=== PATIENT | female | born 1955 | race Caucasian/White ===

== ENCOUNTER 2018-01-14 17:49 | Inpatient (IN) ==
[2018-01-14] MEDS ORDERED: Isovue-370 500 ML INFUS..BTL IV ONE (18:31)
--- NOTE | 2018-01-14 18:34 | Emergency Department Note ---
Disposition Clinical Impression: Hypokalemia Abdominal pain Qualifiers: Abdominal location: lower abdomen, unspecified Qualified Code(s): R10.30 - Lower abdominal pain, unspecified Disposition: Still a Patient Referrals: Danna Ortiz CNP [Primary Care Provider] - Forms: ED Satisfaction Letter, Work/School Release Time of Disposition: 19:47 General Adult HPI - General Chief complaint: ED Abdominal Pain Stated complaint: abd pain,constipation Time Seen by Provider: 01/14/18 18:22 Source: patient Mode of arrival: ambulatory Limitations: no limitations - History of Present Illness HPI Narrative: This is a 62-year-old female who comes to emergency department reporting gradually worsening suprapubic pain over the last 8 weeks. She states she has lost 20 pounds during this time. She reports no vomiting, but states that she has mucousy stools with no normal stool. She denies bright red blood per rectum. Pain Scale: 10 - Related Data Allergies Allergy/AdvReac Type Severity Reaction Status Date / Time No Known Allergies Allergy Verified 01/14/18 19:32 All systems ED: reviewed and negative except as stated. Gastrointestinal: Reports: abdominal pain, constipation Physical Exam - General Limitations: no limitations General appearance: alert, in distress (In mild distress from lower abdominal pain) - Head Head exam: atraumatic, normocephalic, normal inspection - Chest Chest inspection: Present: normal inspection, symmetric chest wall rise - Respiratory Respiratory exam: Present: normal lung sounds bilaterally - Cardiovascular Cardiovascular exam: Present: regular rate, normal rhythm, normal heart sounds - Abdominal Exam Abdominal exam: Present: soft, tenderness Abdominal tenderness: Present: suprapubic, moderate. Absent: RUQ, RLQ, LUQ, LLQ , epigastrium - Extremities Exam Extremities exam: Present: normal inspection, full ROM. Absent: tenderness, pedal edema - Back Exam Back exam: Present: normal inspection, full ROM. Absent: tenderness, CVA tenderness (R), CVA tenderness (L) - Neurological Exam Neurological exam: Present: alert, oriented X3 - Psychiatric Psychiatric exam: Present: normal affect, normal mood - Skin Skin exam: Present: warm, dry, intact, normal color Course Course Narrative: This is a 62-year-old female with an exam concerning for a possible obstruction. Urinary retention seems less likely. Vital Signs Temperature 98.5 F 01/14/18 18:04 Pulse Rate 105 08/28/18 18:04 Respiratory Rate 18 01/14/18 18:04 Blood Pressure 91/55 01/14/18 18:04 O2 Sat by Pulse Oximetry 86 01/14/18 18:04 Temperature 98.5 F 01/14/18 18:04 Pulse Rate 97 01/14/18 18:14 Respiratory Rate 18 01/14/18 18:14 Blood Pressure 102/73 01/14/18 18:14 O2 Sat by Pulse Oximetry 95 01/14/18 18:14 Oxygen Delivery Oxygen Delivery Room Air Medical Decision Making - MDM Narrative Medical decision making narrative: This is a 62-year-old female who reports chronic suprapubic pain and unintentional weight loss starting 8 weeks prior to arrival along with constipation but no vomiting. Labs are summarized above, and treatment of hypokalemia was performed by the receiving team. She was signed out to Dr. Millan 1715 p.m. - Lab Data Lab results narrative: CBC was unremarkable BMP showed potassium was low at 2.7 LFT showed slight elevation of AST at 57 Result diagrams: 01/14/18 18:44 01/14/18 18:44 Lab Results 01/14/18 01/14/18 Range/Units 18:44 18:44 WBC 4.5 (4.3-11.1) K/mcL RBC 3.78 L (3.82-4.97) M/mcL Hgb 12.4 (11.5-15.4) g/dL Hct 35.5 (35.3-44.9) % MCV 93.9 (83.0-100.0) fL MCH 32.8 (28.0-33.3) pg MCHC 34.9 (31.6-35.5) g/dL RDW 18.2 H (11.5-14.5) % Plt Count 213 (140-400) K/mcL MPV 9.2 L (9.4-12.4) fL Immature Gran % 0.2 (0-4) % Seg Neutrophils % 53.1 % Lymphocytes % 35.8 % Monocytes % 8.9 % Eosinophils % 0.9 % Basophils % 1.1 % Neutrophils # 2.4 (1.6-8.9) K/mcL Lymphocytes # 1.6 (0.6-4.6) K/mcL Monocytes # 0.4 (0.0-1.3) K/mcL Eosinophils # 0.0 (0.0-0.6) K/mcL Basophils # 0.1 (0.0-0.2) K/mcL Sodium 141 (136-145) mEq/L Potassium 2.7 L (3.5-5.1) mEq/L Chloride 102 (98-107) mEq/L Carbon Dioxide 30 H (23-29) mEq/L BUN 7 L (8-23) mg/dL Creatinine 0.73 (0.60-1.20) mg/dL Est GFR ( Amer) > 60 (> 60) Est GFR (Non-Af Amer) > 60 (> 60) BUN/Creatinine Ratio 10 (6-26) Glucose 91 (70-105) mg/dL Calculated Osmolality 290 (280-300) Calcium 8.8 (8.6-10.3) mg/dL Total Bilirubin 0.3 (0.3-1.0) mg/dL Direct Bilirubin 0.1 (0.0-0.2) mg/dL Indirect Bilirubin 0.2 (0.0-1.2) mg/dL AST 57 H (13-39) Units/L ALT 30 (7-52) Units/L Alkaline Phosphatase 86 (34-104) Units/L Serum Total Protein 5.7 L (6.4-8.9) g/dL Albumin 3.5 (3.5-5.7) g/dL Globulin 2.2 L (2.4-3.5) g/dL Albumin/Globulin Ratio 1.6 (1.1-2.2)
[2018-01-14 19:12] LABS: Basophils # 0.1 K/mcL (0.0-0.2); Basophils % 1.1 %; Eosinophils % 0.9 %; Hematocrit 35.5 % (35.3-44.9); Hemoglobin 12.4 g/dL (11.5-15.4); Immature Granulocytes % 0.2 % (0-4); Lymphocytes # 1.6 K/mcL (0.6-4.6); Lymphocytes % 35.8 %; Mean Corpuscular HGB Conc 34.9 g/dL (31.6-35.5); Mean Corpuscular Hemoglobin 32.8 pg (28.0-33.3); Mean Corpuscular Volume 93.9 fL (83.0-100.0); Mean Platelet Volume 9.2 fL (9.4-12.4); Monocytes # 0.4 K/mcL (0.0-1.3); Monocytes % 8.9 %; Neutrophils # 2.4 K/mcL (1.6-8.9); Platelet Count 213 K/mcL (140-400); Red Blood Count 3.78 M/mcL (3.82-4.97); Red Cell Distribution Width 18.2 % (11.5-14.5); Segmented Neutrophils % 53.1 %
[2018-01-14 19:28] LABS: Alanine Aminotransferase 30 Units/L (7-52); Albumin 3.5 g/dL (3.5-5.7); Albumin/Globulin Ratio 1.6 (1.1-2.2); Alkaline Phosphatase 86 Units/L (34-104); Aspartate Amino Transferase 57 Units/L (13-39); BUN/Creatinine Ratio 10 (6-26); Bilirubin,Direct 0.1 mg/dL (0.0-0.2); Bilirubin,Indirect 0.2 mg/dL (0.0-1.2); Bilirubin,Total 0.3 mg/dL (0.3-1.0); Blood Urea Nitrogen 7 mg/dL (8-23); Calcium 8.8 mg/dL (8.6-10.3); Carbon Dioxide 30 mEq/L (23-29); Chloride 102 mEq/L (98-107); Globulin 2.2 g/dL (2.4-3.5); Glucose 91 mg/dL (70-105); Osmolality,Calculated 290 (280-300); Potassium 2.7 mEq/L (3.5-5.1); Sodium 141 mEq/L (136-145); Total Protein 5.7 g/dL (6.4-8.9); eGFR For Non-African Americans > 60 (> 60)
[2018-01-14] MEDS ORDERED: Potassium Chloride Elixir 20 MEQ/15 ML UDC PO ONE (19:43)
[2018-01-14 20:16] LABS: Bilirubin,Urine Negative (Negative); Blood,Urine Negative (Negative); Clarity,Urine Cloudy (Clear); Color,Urine Yellow (Yellow); Glucose,Urine (UA) Normal (Normal); Ketones,Urine Negative (Negative); Leukocyte Esterase,Urine Negative (Negative); Nitrite,Urine Negative (Negative); Protein,Urine Negative (Neg-Trace); Specific Gravity,Urine 1.013 (1.010-1.025); Urobilinogen,Urine Normal (Normal)
[2018-01-14 20:29] LABS: Bacteria,Urine Moderate per hpf (None-Few); RBC,Urine 0-3 per hpf (0-3); Squamous Epithelial Cell,Urine Few per lpf (None-Few); WBC,Urine 0-3 per hpf (0-3)
--- NOTE | 2018-01-14 22:17 | Emergency Department Note ---
Disposition Clinical Impression: Hypokalemia, Hypoxia Abdominal pain Qualifiers: Abdominal location: lower abdomen, unspecified Qualified Code(s): R10.30 - Lower abdominal pain, unspecified COPD (chronic obstructive pulmonary disease) Qualifiers: COPD type: chronic bronchitis Chronic bronchitis type: simple Qualified Code(s) : J41.0 - Simple chronic bronchitis Disposition: Admitted As Inpatient Condition: Good Referrals: Danna Ortiz LINE RUNNER [Primary Care Provider] - Forms: ED Satisfaction Letter, Work/School Release Time of Disposition: 22:37 General Adult HPI - General Chief complaint: ED Abdominal Pain Stated complaint: abd pain,constipation Time Seen by Provider: 01/14/18 18:22 Source: patient Mode of arrival: ambulatory Limitations: no limitations Nursing Notes Reviewed: Yes Vital Signs Reviewed: Yes - History of Present Illness HPI Narrative: 3 month history of lower abdominal pain. Weight loss of 21 lbs in 3 months. Early fullness feeling when she eats. Pain with eating. Decreased bowel movements. Small amount of blood on the outside of her stool that she states is from where she " is raw." No fevers or chills. No vomiting, but mildly nauseated. NO chest pain. Always SOB. Chronic cough. No change from normal. Increase in her sputum. NO color or consistency. Has been seen at [facility] and was prepped for 2 colonoscopies but was unable to have them preformed secondary to transportation and unreliable support. Mother has a history of rectal, ovarian and gastric cancer. Does have a history of acid reflux and takes Prilosec daily. Pain Scale: 4 - Related Data Allergies Allergy/AdvReac Type Severity Reaction Status Date / Time No Known Allergies Allergy Verified 01/14/18 19:32 All systems ED: reviewed and negative except as stated. Constitutional: Denies: fever, chills ENT ED: Denies: congestion Cardiovascular: Denies: chest pain, palpitations, syncope Respiratory: Reports: cough (chronic), dyspnea (chronic), sputum production ( increased) Gastrointestinal: Reports: abdominal pain, nausea, constipation. Denies: vomiting, diarrhea Genitourinary: Denies: urgency, dysuria, frequency Musculoskeletal: Denies: back pain, neck pain Integumentary: Denies: rash Neurological: Denies: headache, weakness Past Medical History - Past Medical History Attestation: Yes The following information was validated with the patient. Source: patient Physical Exam - General Limitations: no limitations General appearance: alert, in distress (In mild distress from lower abdominal pain) - Head Head exam: atraumatic, normocephalic, normal inspection - Eye Eye exam: Present: normal appearance, PERRL, EOMI - ENT ENT exam: normal exam, normal oropharynx, mucous membranes moist - Neck Neck exam: Present: normal inspection, full ROM, trachea midline - Chest Chest inspection: Present: normal inspection, symmetric chest wall rise - Respiratory Respiratory exam: Present: normal lung sounds bilaterally. Absent: respiratory distress, wheezes, accessory muscle use, prolonged expiratory phase - Cardiovascular Cardiovascular exam: Present: regular rate, normal rhythm, normal heart sounds - Abdominal Exam Abdominal exam: Present: soft, tenderness (To suprapubic palpation.). Absent: distention, guarding, rebound, rigidity, Lawrence's sign, Rovsing's sign, tenderness at McBurney's Point - Extremities Exam Extremities exam: Present: normal inspection, full ROM, normal capillary refill. Absent: tenderness, pedal edema - Neurological Exam Neurological exam: Present: alert, oriented X3 - Psychiatric Psychiatric exam: Present: normal affect, normal mood - Skin Skin exam: Present: warm, dry, intact, normal color Course Course Narrative: Patient hypoxic on ambulation. Her oxygen saturation drops to the 80s on 3 L of oxygen. Patient is not on oxygen at home. Does have a history of COPD. Is a smoker. Reports an increase in frequency of her sputum. Does have a chronic cough. No fevers. I do believe this is likely a COPD exacerbation secondary to her hypoxemia. However patient does also have a thickening of her esophagus as well as gastric area. Due to the significance of her recent weight loss doing full while she eats small amounts and family history of gastric cancer. We will admit patient to the hospital for COPD exacerbation with hypoxemia. The patient is agreeable with this. We will start patient on steroids as well as azithromycin for her sputum change. As well as her hypoxia. - Consultations Consultation #1: Dr Kaba accepted Pt in stable condition. Time: 22:57 Vital Signs Temperature 98.5 F 01/14/18 18:04 Pulse Rate 105 01/14/18 18:04 Respiratory Rate 18 01/14/18 18:04 Blood Pressure 91/55 01/14/18 18:04 O2 Sat by Pulse Oximetry 86 01/14/18 18:04 Temperature 98.5 F 01/14/18 18:04 Pulse Rate 86 01/14/18 21:06 Respiratory Rate 24 01/14/18 21:06 Blood Pressure 158/108 01/14/18 21:06 O2 Sat by Pulse Oximetry 95 01/14/18 21:07 Oxygen Delivery Oxygen Delivery Nasal Cannula Medical Decision Making - Medical Records Medical records reviewed: Yes I reviewed the patient's medical records. - Lab Data Lab results reviewed: Yes I reviewed the patient's lab results. Result diagrams: 01/14/18 18:44 01/14/18 18:44 Lab Results 01/14/18 01/14/18 01/14/18 Range/Units 18:44 18:44 20:05 WBC 4.5 (4.3-11.1) K/mcL RBC 3.78 L (3.82-4.97) M/mcL Hgb 12.4 (11.5-15.4) g/dL Hct 35.5 (35.3-44.9) % MCV 93.9 (83.0-100.0) fL MCH 32.8 (28.0-33.3) pg MCHC 34.9 (31.6-35.5) g/dL RDW 18.2 H (11.5-14.5) % Plt Count 213 (140-400) K/mcL MPV 9.2 L (9.4-12.4) fL Immature Gran % 0.2 (0-4) % Seg Neutrophils % 53.1 % Lymphocytes % 35.8 % Monocytes % 8.9 % Eosinophils % 0.9 % Basophils % 1.1 % Neutrophils # 2.4 (1.6-8.9) K/mcL Lymphocytes # 1.6 (0.6-4.6) K/mcL Monocytes # 0.4 (0.0-1.3) K/mcL Eosinophils # 0.0 (0.0-0.6) K/mcL Basophils # 0.1 (0.0-0.2) K/mcL Sodium 141 (136-145) mEq/L Potassium 2.7 L (3.5-5.1) mEq/L Chloride 102 (98-107) mEq/L Carbon Dioxide 30 H (23-29) mEq/L BUN 7 L (8-23) mg/dL Creatinine 0.73 (0.60-1.20) mg/dL Est GFR ( Amer) > 60 (> 60) Est GFR (Non-Af Amer) > 60 (> 60) BUN/Creatinine Ratio 10 (6-26) Glucose 91 (70-105) mg/dL Calculated Osmolality 290 (280-300) Calcium 8.8 (8.6-10.3) mg/dL Total Bilirubin 0.3 (0.3-1.0) mg/dL Direct Bilirubin 0.1 (0.0-0.2) mg/dL Indirect Bilirubin 0.2 (0.0-1.2) mg/dL AST 57 H (13-39) Units/L ALT 30 (7-52) Units/L Alkaline Phosphatase 86 (34-104) Units/L Serum Total Protein 5.7 L (6.4-8.9) g/dL Albumin 3.5 (3.5-5.7) g/dL Globulin 2.2 L (2.4-3.5) g/dL Albumin/Globulin Ratio 1.6 (1.1-2.2) Urine Color Yellow (Yellow) Urine Clarity Cloudy A (Clear) Urine pH 7.0 (5.0-8.0) pH Units Ur Specific [place] 1.013 (1.010-1.025) Urine Protein Negative (Neg-Trace) mg/dL Urine Glucose (UA) Normal (Normal) mg/dL Urine Ketones Negative (Negative) mg/dL Urine Blood Negative (Negative) Urine Nitrite Negative (Negative) Urine Bilirubin Negative (Negative) Urine Urobilinogen Normal (Normal) mg/dL Ur Leukocyte Esterase Negative (Negative) Urine Microscopic RBC 0-3 (0-3) per hpf Urine Microscopic WBC 0-3 (0-3) per hpf Ur Squamous Epith Cells Few (None-Few) per lpf Urine Bacteria Moderate H (None-Few) per hpf Ur Culture Indicated? NO (NO) - Radiology Data Radiology results reviewed: Yes I reviewed the patient's radiology results. Abdomen/Pelvis CT 01/14/18 18:31 IMPRESSION: Moderate thickening of the stomach wall, and duodenal wall. Thickening of the esophagus. Findings may be seen in setting of gastroesophageal reflux, gastritis, or peptic ulcer disease. Follow-up upper endoscopy is recommended given degree of gastric wall thickening to exclude malignancy. Mild nonspecific enhancement of the appendix tip. No significant inflammation is identified. This is likely secondary to timing of the contrast. However, clinical correlation is recommended for any concern of early appendicitis. Overall, findings do not favored acute appendicitis. No evidence of mechanical bowel obstruction. No additional areas of bowel wall thickening are identified. Colonic diverticulosis. No convincing CT evidence of acute diverticulitis. Severe hepatic steatosis. Distended gallbladder, without calcified gallstones. Multiple calcified periportal lymph nodes identified. These are nonspecific. Nonspecific 14 mm right adrenal nodule. D/ / 01/14/2018 21:47:20 Eddi Og MD / [email or web address] Interpreting Provider: Eddi Og MD Chest X-Ray 01/14/18 19:55 IMPRESSION: COPD. No acute cardiopulmonary findings. D/ / Gwen Og MD / Gwen Og MD Interpreting Provider: Gwen Og MD
[2018-01-14] MEDS ORDERED: methylPREDNISolone 125 MG/2 ML VIAL IVP ONE (22:35)
[2018-01-14] MEDS ORDERED: Azithromycin 500 MG in D5% in Water 250 ML IVPB ONE (22:36)
--- NOTE | 2018-01-14 23:02 | Emergency Department Note ---
Disposition Clinical Impression: Hypokalemia, Hypoxia Abdominal pain Qualifiers: Abdominal location: lower abdomen, unspecified Qualified Code(s): R10.30 - Lower abdominal pain, unspecified COPD (chronic obstructive pulmonary disease) Qualifiers: COPD type: chronic bronchitis Chronic bronchitis type: simple Qualified Code(s) : J41.0 - Simple chronic bronchitis Disposition: Admitted As Inpatient Condition: Good Referrals: Danna Ortiz, [employer] EXECUTIVE [Primary Care Provider] - Forms: ED Satisfaction Letter, Work/School Release General Adult HPI - General Chief complaint: ED Abdominal Pain Stated complaint: abd pain,constipation Time Seen by Provider: 01/14/18 18:22 Source: patient Mode of arrival: ambulatory Limitations: no limitations Nursing Notes Reviewed: Yes Vital Signs Reviewed: Yes - History of Present Illness Pain Scale: 4 - Related Data Allergies Allergy/AdvReac Type Severity Reaction Status Date / Time No Known Allergies Allergy Verified 01/14/18 19:32 Constitutional: Denies: fever, chills ENT ED: Denies: congestion Cardiovascular: Denies: chest pain, palpitations, syncope Respiratory: Reports: cough (chronic), dyspnea (chronic), sputum production ( increased) Gastrointestinal: Reports: abdominal pain, nausea, constipation. Denies: vomiting, diarrhea Genitourinary: Denies: urgency, dysuria, frequency Musculoskeletal: Denies: back pain, neck pain Integumentary: Denies: rash Neurological: Denies: headache, weakness Physical Exam - General Limitations: no limitations General appearance: alert, in distress (In mild distress from lower abdominal pain) Course Vital Signs Temperature 98.5 F 01/14/18 18:04 Pulse Rate 105 01/14/18 18:04 Respiratory Rate 18 01/14/18 18:04 Blood Pressure 91/55 01/14/18 18:04 O2 Sat by Pulse Oximetry 86 01/14/18 18:04 Temperature 98.5 F 01/14/18 18:04 Pulse Rate 86 01/14/18 21:06 Respiratory Rate 24 01/14/18 21:06 Blood Pressure 158/108 01/14/18 21:06 O2 Sat by Pulse Oximetry 95 01/14/18 21:07 Oxygen Delivery Oxygen Delivery Nasal Cannula Medical Decision Making - Medical Records Medical records reviewed: Yes I reviewed the patient's medical records. - Lab Data Lab results reviewed: Yes I reviewed the patient's lab results. Result diagrams: 01/14/18 18:44 01/14/18 18:44 Lab Results 01/14/18 01/14/18 01/14/18 Range/Units 18:44 18:44 20:05 WBC 4.5 (4.3-11.1) K/mcL RBC 3.78 L (3.82-4.97) M/mcL Hgb 12.4 (11.5-15.4) g/dL Hct 35.5 (35.3-44.9) % MCV 93.9 (83.0-100.0) fL MCH 32.8 (28.0-33.3) pg MCHC 34.9 (31.6-35.5) g/dL RDW 18.2 H (11.5-14.5) % Plt Count 213 (140-400) K/mcL MPV 9.2 L (9.4-12.4) fL Immature Gran % 0.2 (0-4) % Seg Neutrophils % 53.1 % Lymphocytes % 35.8 % Monocytes % 8.9 % Eosinophils % 0.9 % Basophils % 1.1 % Neutrophils # 2.4 (1.6-8.9) K/mcL Lymphocytes # 1.6 (0.6-4.6) K/mcL Monocytes # 0.4 (0.0-1.3) K/mcL Eosinophils # 0.0 (0.0-0.6) K/mcL Basophils # 0.1 (0.0-0.2) K/mcL Sodium 141 (136-145) mEq/L Potassium 2.7 L (3.5-5.1) mEq/L Chloride 102 (98-107) mEq/L Carbon Dioxide 30 H (23-29) mEq/L BUN 7 L (8-23) mg/dL Creatinine 0.73 (0.60-1.20) mg/dL Est GFR ( Amer) > 60 (> 60) Est GFR (Non-Af Amer) > 60 (> 60) BUN/Creatinine Ratio 10 (6-26) Glucose 91 (70-105) mg/dL Calculated Osmolality 290 (280-300) Calcium 8.8 (8.6-10.3) mg/dL Total Bilirubin 0.3 (0.3-1.0) mg/dL Direct Bilirubin 0.1 (0.0-0.2) mg/dL Indirect Bilirubin 0.2 (0.0-1.2) mg/dL AST 57 H (13-39) Units/L ALT 30 (7-52) Units/L Alkaline Phosphatase 86 (34-104) Units/L Serum Total Protein 5.7 L (6.4-8.9) g/dL Albumin 3.5 (3.5-5.7) g/dL Globulin 2.2 L (2.4-3.5) g/dL Albumin/Globulin Ratio 1.6 (1.1-2.2) Urine Color Yellow (Yellow) Urine Clarity Cloudy A (Clear) Urine pH 7.0 (5.0-8.0) pH Units Ur Specific [place] 1.013 (1.010-1.025) Urine Protein Negative (Neg-Trace) mg/dL Urine Glucose (UA) Normal (Normal) mg/dL Urine Ketones Negative (Negative) mg/dL Urine Blood Negative (Negative) Urine Nitrite Negative (Negative) Urine Bilirubin Negative (Negative) Urine Urobilinogen Normal (Normal) mg/dL Ur Leukocyte Esterase Negative (Negative) Urine Microscopic RBC 0-3 (0-3) per hpf Urine Microscopic WBC 0-3 (0-3) per hpf Ur Squamous Epith Cells Few (None-Few) per lpf Urine Bacteria Moderate H (None-Few) per hpf Ur Culture Indicated? NO (NO) - Radiology Data Radiology results reviewed: Yes I reviewed the patient's radiology results. Abdomen/Pelvis CT 01/14/18 18:31 IMPRESSION: Moderate thickening of the stomach wall, and duodenal wall. Thickening of the esophagus. Findings may be seen in setting of gastroesophageal reflux, gastritis, or peptic ulcer disease. Follow-up upper endoscopy is recommended given degree of gastric wall thickening to exclude malignancy. Mild nonspecific enhancement of the appendix tip. No significant inflammation is identified. This is likely secondary to timing of the contrast. However, clinical correlation is recommended for any concern of early appendicitis. Overall, findings do not favored acute appendicitis. No evidence of mechanical bowel obstruction. No additional areas of bowel wall thickening are identified. Colonic diverticulosis. No convincing CT evidence of acute diverticulitis. Severe hepatic steatosis. Distended gallbladder, without calcified gallstones. Multiple calcified periportal lymph nodes identified. These are nonspecific. Nonspecific 14 mm right adrenal nodule. D/ / 01/14/2018 21:47:20 Eddi Og MD / gumaro Interpreting Provider: Eddi Og MD Chest X-Ray 01/14/18 19:55 IMPRESSION: COPD. No acute cardiopulmonary findings. D/ / Gwen Og MD / Gwen Og MD Interpreting Provider: Gwen Og MD Attestation Statement - Attestation Attestation: I, Ced Millan MD, personally evaluated this patient and discussed their management with the resident physician. I reviewed the resident's note and agree with the documented findings, medical decision making, and plan of care. This patient was signed out at shift change from Dr. mcknight. Please refer to his note for complete details of history and physical examination. Patient is a 62- year-old female with history of COPD who presents to the emergency department complaining of lower abdominal pain for 2 months associated with constipation and a 20 pound weight loss. She has COPD but does not use home oxygen. She does complain of some increased shortness of breath. Some cough with clear sputum production in the morning. No fever. She denies any urinary symptoms. Small amount of bright red blood on the tissue when she wipes but otherwise no blood noted in her stool. No hematemesis. Patient was noted to be hypoxic with an O2 sat of 86% on room air on arrival. She was placed on oxygen with improvement to the low to mid 90s however when she got up to go the bathroom with the oxygen on she dropped back down to 88% on oxygen. She does not have home oxygen. On examination patient is a well-developed thin female in no acute distress. She is alert and oriented 3. There is no cyanosis or diaphoresis. Chest is nontender to palpation. Breath sounds are decreased bilaterally with a few scattered expiratory wheezes. No rales. Heart regular rate and rhythm. Abdomen soft with normal bowel sounds. Mild suprapubic tenderness with no guarding or rebound tenderness. No CVA tenderness. There is also some epigastric tenderness. Chest x-ray shows COPD but no acute abnormality. CT the abdomen and pelvis shows thickening of the gastric wall as well as the esophagus and duodenum. Concerning for malignancy. Labs reviewed. Hypokalemia noted. The hospitalist, Dr. Gardner, was consulted and accepted admission of the patient.
[2018-01-15 05:57] LABS: Hematocrit 38.8 % (35.3-44.9); Hemoglobin 13.2 g/dL (11.5-15.4); Mean Corpuscular Hemoglobin 31.1 pg (28.0-33.3); Mean Corpuscular Volume 91.3 fL (83.0-100.0); Mean Platelet Volume 9.2 fL (9.4-12.4); Platelet Count 214 K/mcL (140-400); Red Blood Count 4.25 M/mcL (3.82-4.97); Red Cell Distribution Width 17.8 % (11.5-14.5)
[2018-01-15 06:17] LABS: BUN/Creatinine Ratio 11 (6-26); Blood Urea Nitrogen 6 mg/dL (8-23); Calcium 8.8 mg/dL (8.6-10.3); Carbon Dioxide 28 mEq/L (23-29); Chloride 98 mEq/L (98-107); Glucose 136 mg/dL (70-105); Osmolality,Calculated 290 (280-300); Potassium 3.1 mEq/L (3.5-5.1); Sodium 140 mEq/L (136-145); eGFR For Non-African Americans > 60 (> 60)
[2018-01-15] MEDS ORDERED: Naloxone 0.4 MG/ML INJ IVP PRN (07:36)
[2018-01-15] MEDS ORDERED: Isovue-370 500 ML INFUS..BTL IV ONE (07:39)
[2018-01-15] MEDS ORDERED: Potassium Chloride Elixir 20 MEQ/15 ML UDC PO SCH (07:45)
[2018-01-15] MEDS ORDERED: MethylPREDNISolone 40 MG/ML VIAL IVP SCH (08:00)
[2018-01-15 08:33] LABS: ABG Base Excess 6 mEq/L (-2 to 3); ABG HCO3 30 mEq/L (21-27); ABG Oxygen Saturation 90 % (95-98); ABG PCO2 43 mmHg (35-45); ABG PH 7.45 pH Units (7.32-7.45); ABG PO2 56 mmHg (85-104); ABG TCO2 32 mEq/L (20-26)
[2018-01-15] MEDS: Levofloxacin 750 MG/150 ML 750 MG/150 ML BAG IVPB SCH (08:39)
[2018-01-15] MEDS ORDERED: *HR* LORazepam 2 MG/ML VIAL IVP PRN (09:08)
[2018-01-15] MEDS ORDERED: diazePAM 10 MG/2 ML SYRINGE IVP PRN ×5 (09:08)
[2018-01-15] MEDS ORDERED: *HR* Promethazine 25 MG/ML VIAL IVP PRN (09:08)
--- NOTE | 2018-01-15 09:10 | Internal Med History&Physical ---
Date of Encounter: 01/15/18 Time of Encounter: 09:00 Internal Medicine - H&P: HPI Chief complaint: Abdominal pain of about 2 months duration and weight loss History of present illness: Ms. Us is a 62 year old female with pmh COPD, alcohol and tobacco abuse presenting with complaints of abdominal pain of about 2 months duration and a 20 pound weight loss. Patient notes, the pain was sudden onset and started about 2 months ago and has been constant since then. Pain is a dull, constant ache located in the suprapubic area, worsened with eating and defecation. She also notes she has had progress gideon weight loss. She admits to drinking beer and vodka daily as well, last drink was about a week ago. Since last night, she noted she has been having tremors and shakes in her hands and legs. She admits to occasional fevers and chills and admits to coughing with some occasional shortness of breath. In the ERA, she was noted to be hypxoc with her oxygen sats of 86% on room air on arrival. She is not on home oxygen. She had a CTA chest, abdomen and pelvis done showing no PE, but showed esophageal, gastric and duodenal thickening. She was started onnebs, steroids and antibiotic s and admitted for further management Past Med Surg Social Fam HX - Past Medical History Medical history: COPD, GERD, hypertension Psychiatric history: anxiety - Past Surgical History Surgical History: no surgical history - Social History Smoking Status: Current every day smoker Packs per day: 1 Smokeless Tobacco Status: No Alcohol use: occasionally Drug use: marijuana - Family History Mother Adopted: [place]: Sujata Tong Living Status: Age at : 84 Cause of : Cancer Hx Family Cancer: Yes (multiple) Father Adopted: [place]: Chencho Tong Family Member Ethnicity: Non- Living Status: Age at : 64 Cause of : Cancer Hx Family Cancer: Yes (Multiple) Internal Medicine - H&P: Meds Albuterol Sulfate [Ventolin Hfa] 2 puff IH Q4-6H PRN 01/15/18 [History] Cholecalciferol (Vitamin D3) [Vitamin D3] 10,000 unit PO QWEEK 01/15/18 [History ] Escitalopram [Lexapro] 20 mg PO DAILY 01/15/18 [History] Fluticasone/Vilanterol [Breo Ellipta 100-25 Mcg INH] 2 puff PO BID 01/15/18 [ History] Ibuprofen [Ibuprofen] 800 mg PO QID PRN 01/15/18 [History] Ipratropium/Albuterol Neb [Duoneb] 3 ml IH Q6HR PRN 01/15/18 [History] Montelukast [Singulair] 10 mg PO HS 01/15/18 [History] Potassium Chloride [K-Tab ER] 10 meq PO DAILY 01/15/18 [History] Simvastatin [Zocor] 10 mg PO HS 01/15/18 [History] amLODIPine [Norvasc] 5 mg PO DAILY 01/15/18 [History] 3 Allergy/AdvReac Type Severity Reaction Status Date / Time No Known Allergies Allergy Verified 01/14/18 19:32 All Systems PM: A 10-system review of systems was performed and is negative for pertinent findings except as documented above in the HPI. - Constitutional Constitutional: fever(s), no chills, no night sweats - EENT Eyes: no change in vision, no discharge, no pain, no photophobia Ears: no ear discharge, no ear pain, no tinnitus Nose, mouth and throat: no dysphagia, no nasal discharge, no neck pain, no sore throat - Cardiovascular Cardiovascular ROS IM: dyspnea, no chest pain, no diaphoresis, no lightheadedness, no palpitations, no syncope - Respiratory Respiratory: cough, dyspnea, no wheezing, no excessive phlegm production - Gastrointestinal Gastrointestinal: abdominal pain, constipation, no diarrhea, no hematemesis, no hematochezia, no melena, no nausea, no vomiting - Genitourinary Genitourinary: no change in urinary stream, no dysuria, no flank pain, no hematuria - Musculoskeletal Musculoskeletal ROS IM: no numbness, no tingling - Integumentary Integumentary IM: no rash, no unusual bruising - Neurological Neurological ROS: no confusion, no convulsions, no focal weakness, no numbness, no tingling, no tremor(s) - Hematologic/Lymphatic Hematologic/Lymphatic: no easy bruising - Constitutional Vitals: Temp Pulse Resp BP Pulse Ox 98.2 F 91 16 149/79 98 01/15/18 06:46 01/15/18 06:46 01/15/18 06:46 01/15/18 06:46 01/15/18 06:46 General appearance: Present: A&O X 3 Exam: Appears anxious and hs tremors in hands and legs - Head Head exam: Present: atraumatic, normocephalic - Eye Eye exam: Present: PERRL, conjuntiva pink, sclera anicteric Pupils: Present: PERRL - Neck Neck exam general surgery: Present: supple, trachea midline. Absent: lymphadenopathy - Respiratory Respiratory exam: Present: decreased breath sounds. Absent: accessory muscle use, rales, rhonchi, wheezes - Cardiovascular Cardiovascular exam: Present: RRR, +S1, +S2. Absent: diastolic murmur, gallop, rubs, systolic murmur - GI/Abdominal GI/Abdominal exam: Present: normal bowel sounds, soft, tenderness, no peritoneal signs. Absent: distended Additional comments: suprapubic tenderness to palpation - Extremities Exam Extremities exam: Present: warm, radial pulses palpable and symmetrical. Absent : calf tenderness, cyanotic, pedal edema - Neurological Exam Neurological exam: Present: CN II-XII intact, oriented X3, no focal deficits. Absent: pronater drift, facial droop, speech deficit - Skin Skin exam: Present: dry, intact Internal Med - H&P Results - Labs CBC & Chem 7: 01/15/18 05:43 01/15/18 05:43 Labs: Short CBC 01/15/18 Range/Units 05:43 WBC 3.3 L (4.3-11.1) K/mcL Hgb 13.2 (11.5-15.4) g/dL Hct 38.8 (35.3-44.9) % Plt Count 214 (140-400) K/mcL [facility] 01/15/18 05:43 Sodium 140 Potassium 3.1 L Chloride 98 Carbon Dioxide 28 BUN 6 L Creatinine 0.53 L Glucose 136 H Calcium 8.8 - ABG Interpretation ABG results: 01/15/18 08:29 ABG pH 7.45 ABG pCO2 43 ABG pO2 56 L ABG HCO3 30 H ABG Total CO2 32 H ABG O2 Saturation 90 L ABG Base Excess 6 H - Impressions ITS Impressions Chest CTA 01/15/18 07:39 IMPRESSION: 1. No pulmonary embolism. No acute abnormality in the chest. 2. Mild emphysema and COPD. 3. A 2 mm right apical nodule. Consider a 1 year follow-up chest CT if the patient is high risk, as outlined below. 4. Diffuse gastric wall thickening, which can be seen with gastritis, or less likely malignancy. Follow-up with upper endoscopy is recommended, which was also recently recommended on the CT abdomen exam. RECOMMENDATIONS: Fleischner Society guidelines for follow-up and management of incidentally detected pulmonary nodules: Single Solid Nodule: Nodule size less than 6 mm In a low-risk patient, no routine follow-up. In a high-risk patient, optional CT at 12 months. - Low risk patients include individuals with minimal or absent history of smoking and other known risk factors. - High risk patients include individuals with a history or smoking or known risk factors. Radiology 2017 http://pubs.rsna.org/doi/full/10.1148/radiol.8647244487 D/ / 01/15/2018 08:57:51 Yuri Wild MD / lina Interpreting Provider: Yuri Wild MD - Assessment and plan (1) Acute respiratory failure with hypoxia Current Visit: Yes Status: Acute Assessment and plan: pt came in with coughing and shortness of breath. Oxygen sat was 86% on room air. CTA chest ruled out PE but showed evidence of emphysema and COPD Patrick start on nebs, steroids and antibiotics. Supplemental oxygen as needed to keep sats above 93%. (2) COPD with acute exacerbation Current Visit: Yes Status: Acute Assessment and plan: See #1. Continue on nebs, steroids and antibiotics (3) Alcohol withdrawal delirium, acute, hyperactive Current Visit: Yes Status: Acute Assessment and plan: Pt admits to drinking beer and vodka every day. LAst drink was a week ago. Has tremors and shakes consistent with alcohol withdrawal as well she is anxious. Start on CIWA protocol with banana bag and prn ativan (4) Gastric wall thickening Current Visit: Yes Status: Acute Assessment and plan: Pt complains of abdominal pain and has esophageal, agstric and duodenal wall thickening on CT scan. NPO for possible endoscopy. GI consulted and appreciate recs (5) Hypokalemia Current Visit: Yes Status: Acute Assessment and plan: Replaced (6) Abdominal pain Current Visit: Yes Status: Acute Assessment and plan: See plan for gastric wall thickening. Pain control PRN. CT scan shows no evidence of diverticulitis Qualifiers: Abdominal location: lower abdomen, unspecified Qualified Code(s): R10.30 - Lower abdominal pain, unspecified (7) DVT prophylaxis Current Visit: Yes Status: Acute Assessment and plan: Heparin sc - Time Spent With Patient Total time spent is greater than 50% in coordination of care (as documented) at patient's floor/unit and/or counseling patient:
[2018-01-15] MEDS ORDERED: Acetaminophen 325 MG TABLET PO PRN (09:11)
[2018-01-15] MEDS: *HR* LORazepam 2 MG/ML VIAL IVP PRN ×2 (09:56→19:27)
--- NOTE | 2018-01-15 14:15 | Anesthesia Evaluation PreOp ---
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: Other (anxiety, depression) Other Medical History: Denies Any Significant HX, Other (weight loss) Anesthesia History: No Prior Anesthetic Complications, Past Anesthesia ( colonoscopy) Alcohol Use: none, occasionally Drug use: none, marijuana Medications and Allergies Albuterol Sulfate [Ventolin Hfa] 2 puff IH Q4-6H PRN 01/15/18 [History] Cholecalciferol (Vitamin D3) [Vitamin D3] 10,000 unit PO QWEEK 01/15/18 [History ] Escitalopram [Lexapro] 20 mg PO DAILY 01/15/18 [History] Fluticasone/Vilanterol [Breo Ellipta 100-25 Mcg INH] 2 puff PO BID 01/15/18 [ History] Ibuprofen [Ibuprofen] 800 mg PO QID PRN 01/15/18 [History] Ipratropium/Albuterol Neb [Duoneb] 3 ml IH Q6HR PRN 01/15/18 [History] Montelukast [Singulair] 10 mg PO HS 01/15/18 [History] Potassium Chloride [K-Tab ER] 10 meq PO DAILY 01/15/18 [History] Simvastatin [Zocor] 10 mg PO HS 01/15/18 [History] amLODIPine [Norvasc] 5 mg PO DAILY 01/15/18 [History] 3 Allergy/AdvReac Type Severity Reaction Status Date / Time No Known Allergies Allergy Verified 01/14/18 19:32 - Meds/Allergy Pre-op Review Medications Reviewed: Yes Allergies Reviewed: Yes Beta Blockers on Current Med List: No Anesthesia Results - Labs 01/15/18 05:43 01/15/18 05:43 Anesthesia Exam Vital Signs/O2 Sat, Most Current Temp Pulse Resp BP Pulse Ox 98.7 F 83 16 132/78 98 01/15/18 11:46 01/15/18 11:46 01/15/18 11:46 01/15/18 11:46 01/15/18 11:46 Weight: 49kg NPO (# of Hours): >8 - HEENT Pupil (Motor): Pupils equal - WRITER PRODUCER LOC: Oriented WRITER PRODUCER Motor: Normal RUE, Normal LUE, Normal RLE, Normal LLE, Normal Face WRITER PRODUCER Sensory: Normal: RUE, LUE, RLE, LLE, Face - Cardiac Rhythm: Regular - Pulmonary Breath Sounds: bilateral Clear Respiratory Effort: Symmetrical Anesthesia Assess/Plan ASA Score: 3 Modified Lela Scale for Level of Consciousness: Cooperative, oriented, and tranquil Anesthetic Plan: MAC Monitoring Plan: Standard Monitors Recovery Plan: PACU
--- NOTE | 2018-01-15 14:23 | Gastroenterology Consult Note ---
<CamejoJaime Velazquez - Last Filed: 01/15/18 14:21> Date of Encounter: 01/15/18 Time of Encounter: 11:40 - Assessment and plan (1) Gastric wall thickening Current Visit: Yes Status: Acute Assessment and plan: CT A/P shows moderate thickening of the stomach wall, duodenal wall, the esophagus, and low-density lesion within the distal esophagus, severe hepatic steatosis. CTA chest shows diffuse gastric wall thickening, which can be seen with gastritis, or less likely malignancy. Plan for EGD today to r/o esophagitis , gastritis, duodenitis, PUD, MW tear, or AVM. Keep NPO for scope. Start PPI. (2) Abdominal pain Current Visit: Yes Status: Acute Qualifiers: Abdominal location: lower abdomen, unspecified Qualified Code(s): R10.30 - Lower abdominal pain, unspecified - Time Spent With Patient Total time spent is greater than 50% in coordination of care (as documented) at patient's floor/unit and/or counseling patient: GI History of Present Illness - Data of Consult Patient: new to practice Consult date: 01/15/18 Requesting Physician: Ion Gardner MD - Consult Narrative Reason for consult: Thickening of stomach, lesion in esophagus History of present illness: Ms. Us is a 62 year old female with PMHx of COPD, GERD, HTN who presented with 3 month history of lower abdominal pain and weight loss of 21 lbs in 3 months. He reports small amount of blood on her stool. She denies fever, chills , chest pain, vomiting, diarrhea. CT A/P shows moderate thickening of the stomach wall, duodenal wall, the esophagus, and low-density lesion within the distal esophagus, severe hepatic steatosis. CTA chest shows diffuse gastric wall thickening, which can be seen with gastritis, or less likely malignancy Procedures: Colonoscopy 09/20/2009 Dr. Olivares: Cecum with sessile adenoma, sigmoid hyperplastic polyp, proximal ascending with sessile adenoma. NSAIDs: Ibuprofen Anticoagulation: None Past Med Surg Social Fam HX - Past Medical History Medical history: COPD, GERD, hypertension Psychiatric history: anxiety - Past Surgical History Surgical History: no surgical history - Social History Smoking Status: Current every day smoker Packs per day: 1 Smokeless Tobacco Status: No Alcohol use: none, occasionally Drug use: none, marijuana - Family History Mother Adopted: [place]: Sujata Tong Living Status: Age at : 84 Cause of : Cancer Hx Family Cancer: Yes (multiple) Father Adopted: [place]: Chencho Tong Family Member Ethnicity: Non- Living Status: Age at : 64 Cause of : Cancer Hx Family Cancer: Yes (Multiple) - Gastrointestinal Gastrointestinal: Present: as per HPI - Constitutional Constitutional: as per HPI - EENT Eyes: as per HPI Ears: Present: as per HPI Nose, mouth and throat: Present: as per HPI - Cardiovascular Cardiovascular ROS: Present: as per HPI - Respiratory Respiratory IM: Present: as per HPI - Genitourinary Genitourinary: Absent: change in color, Urinary frequency - Neurological ROS Neurological GI: Present: as per HPI - Hematologic/Lymphatic Hematologic/Lymphatic pediatric: Present: as per HPI - Musculoskeletal Musculoskeletal ROS GI: Present: as per HPI - Integumentary Integumentary GI: Present: as per HPI - Psychiatric ROS Psychiatric GI: Present: as per HPI - Endocrine Endocrine IM: Present: as per HPI - Constitutional Vitals: Temp Pulse Resp BP Pulse Ox 98.7 F 83 16 132/78 98 01/15/18 11:46 01/15/18 11:46 01/15/18 11:46 01/15/18 11:46 01/15/18 11:46 General appearance: Present: cooperative, A&O X 3, no acute distress, answers questions appropriately - Head Head exam: Present: atraumatic, normocephalic - Eye Eye exam: Present: normal appearance, sclera anicteric - ENT ENT exam: Present: mucous membranes dry - Neck Neck exam general surgery: Present: normal inspection, trachea midline - Respiratory Respiratory exam: Present: decreased breath sounds, CTAB. Absent: rales, rhonchi - Cardiovascular Cardiovascular exam: Present: RRR, +S1, +S2 - GI/Abdominal GI/Abdominal exam: Present: soft, tenderness (upper abdomen), no peritoneal signs. Absent: distended, firm, guarding - Rectal Rectal exam: Present: deferred - Extremities Exam Extremities exam: Present: warm - Neurological Exam Neurological exam: Present: no focal deficits - Psychiatric Psychiatric exam: Present: normal affect, normal mood - Skin Skin exam: Present: dry, intact, normal color, warm Results - Labs CBC & Chem 7: 01/15/18 05:43 01/15/18 05:43 Labs: Last Result Calcium 8.8 mg/dL (8.6-10.3) 01/15/18 05:43 Entire Visit Hgb 13.2 g/dL (11.5-15.4) 01/15/18 05:43 Hct 38.8 % (35.3-44.9) 01/15/18 05:43 Total Bilirubin 0.3 mg/dL (0.3-1.0) 01/14/18 18:44 AST 57 Units/L (13-39) H 01/14/18 18:44 ALT 30 Units/L (7-52) 01/14/18 18:44 Lipase 18 Units/L (11-82) 01/15/18 09:48 - ABG ABG results: ABG ABG pH 7.45 pH Units (7.32-7.45) 01/15/18 08:29 ABG pCO2 43 mmHg (35-45) 01/15/18 08:29 ABG pO2 56 mmHg (85-104) L 01/15/18 08:29 ABG O2 Saturation 90 % (95-98) L 01/15/18 08:29 - Impressions Impressions Chest CTA 01/15/18 07:39 IMPRESSION: 1. No pulmonary embolism. No acute abnormality in the chest. 2. Mild emphysema and COPD. 3. A 2 mm right apical nodule. Consider a 1 year follow-up chest CT if the patient is high risk, as outlined below. 4. Diffuse gastric wall thickening, which can be seen with gastritis, or less likely malignancy. Follow-up with upper endoscopy is recommended, which was also recently recommended on the CT abdomen exam. RECOMMENDATIONS: Fleischner Society guidelines for follow-up and management of incidentally detected pulmonary nodules: Single Solid Nodule: Nodule size less than 6 mm In a low-risk patient, no routine follow-up. In a high-risk patient, optional CT at 12 months. - Low risk patients include individuals with minimal or absent history of smoking and other known risk factors. - High risk patients include individuals with a history or smoking or known risk factors. Radiology 2017 http://pubs.rsna.org/doi/full/10.1148/radiol.1659895961 D/ /15/2018 08:57:51 Yuri Wild MD / lina Interpreting Provider: Yuri Wild MD Consult Discharge Plan - Plan Referrals: Danna Ortiz CNP [Primary Care Provider] - <Leandra Palacios - Last Filed: 01/16/18 07:42> Date of Encounter: 01/15/18 Time of Encounter: 14:00 - Time Spent With Patient Total time spent is greater than 50% in coordination of care (as documented) at patient's floor/unit and/or counseling patient: GI History of Present Illness - Data of Consult Requesting Physician: Ion Gardner MD - Consult Narrative History of present illness: Ms. Us is a 62 year old female - Constitutional Vitals: Temp Pulse Resp BP Pulse Ox 98.7 F 105 20 132/76 97 01/16/18 07:06 01/16/18 07:06 01/16/18 07:06 01/16/18 07:06 01/16/18 07:06 Results - Labs CBC & Chem 7: 01/16/18 04:24 01/16/18 04:24 Labs: Last Result Calcium 8.5 mg/dL (8.6-10.3) L 01/16/18 04:24 Entire Visit Hgb 11.9 g/dL (11.5-15.4) 01/16/18 04:24 Hct 35.2 % (35.3-44.9) L 01/16/18 04:24 Total Bilirubin 0.3 mg/dL (0.3-1.0) 01/14/18 18:44 AST 57 Units/L (13-39) H 01/14/18 18:44 ALT 30 Units/L (7-52) 01/14/18 18:44 Lipase 18 Units/L (11-82) 01/15/18 09:48 - ABG ABG results: ABG ABG pH 7.45 pH Units (7.32-7.45) 01/15/18 08:29 ABG pCO2 43 mmHg (35-45) 01/15/18 08:29 ABG pO2 56 mmHg (85-104) L 01/15/18 08:29 ABG O2 Saturation 90 % (95-98) L 01/15/18 08:29 - Impressions Impressions Chest CTA 01/15/18 07:39 IMPRESSION: 1. No pulmonary embolism. No acute abnormality in the chest. 2. Mild emphysema and COPD. 3. A 2 mm right apical nodule. Consider a 1 year follow-up chest CT if the patient is high risk, as outlined below. 4. Diffuse gastric wall thickening, which can be seen with gastritis, or less likely malignancy. Follow-up with upper endoscopy is recommended, which was also recommended on the recent CT abdomen exam. RECOMMENDATIONS: Fleischner Society guidelines for follow-up and management of incidentally detected pulmonary nodules: Single Solid Nodule: Nodule size less than 6 mm In a low-risk patient, no routine follow-up. In a high-risk patient, optional CT at 12 months. - Low risk patients include individuals with minimal or absent history of smoking and other known risk factors. - High risk patients include individuals with a history or smoking or known risk factors. Radiology 2017 http://pubs.rsna.org/doi/full/10.1148/radiol.5731321228 D/ / 01/15/2018 08:57:51 Yuri Wild MD / lina Interpreting Provider: Yuri Wild MD - Attending Attestation I have personally performed a face to face evaluation on this patient. I have reviewed and agree with the care plan. History and Exam by me shows: Pt seen, complaing of lower abd pain. Exam: mild tanderness. A: aabd pain with gastric and esoph wall thickening on CT. Rec: EGD
[2018-01-15] MEDS ORDERED: *HR* Propofol 200 MG/20 ML VIAL IVP ONE ×2 (14:45→15:11)
[2018-01-15] MEDS ORDERED: Lidocaine -MPF 2% 2 ML VIAL ONE (14:45)
[2018-01-15] MEDS: Ipratropium/Albuterol Neb 3 ML IH SCH ×5 (15:34→23:17)
[2018-01-15] MEDS: Budesonide/Formoterol 160/4.5 1 PUFF INH IH SCH ×2 (15:35→19:52)
--- NOTE | 2018-01-15 16:32 | Anesthesia Evaluation Post Op ---
Date of Encounter: 01/15/18 Time of Encounter: 16:31 - Vital Signs Vital Signs: Vital Signs/O2 Sat, Most Current Temp Pulse Resp BP Pulse Ox 98.7 F 93 16 122/96 97 01/15/18 14:30 01/15/18 14:30 01/15/18 14:30 01/15/18 14:30 01/15/18 14:30 - Lungs Lungs: Clear Ascult./Percussion - Airway Airway: Non-obstructed - Cardiovascular Regular Rate - Mental Status Mental Status: Alert & Oriented, Answers Appropriately - Pain Pain Scale: 0 Pain Scale used: Numeric (1 - 10) - Nausea Vomiting Nausea Vomiting: Not Present - Hydration Hydration: Has not voided - Discharge PostOp Status: Transfer Patient to floor
[2018-01-15] MEDS: MethylPREDNISolone 40 MG/ML VIAL IVP SCH (17:25)
[2018-01-15] MEDS: Thiamine (B-1) 100 MG, Folic Acid 1 MG, MVI, adult with vitamin K 10 ML in 0.9 % Sodi... IVPB SCH (17:25)
[2018-01-16] MEDS: Ipratropium/Albuterol Neb 3 ML IH SCH ×6 (04:49→23:00)
[2018-01-16 05:02] LABS: Hematocrit 35.2 % (35.3-44.9); Hemoglobin 11.9 g/dL (11.5-15.4); Immature Granulocytes % 0.5 % (0-4); Lymphocytes # 0.8 K/mcL (0.6-4.6); Lymphocytes % 17.7 %; Mean Corpuscular HGB Conc 33.8 g/dL (31.6-35.5); Mean Corpuscular Hemoglobin 31.4 pg (28.0-33.3); Mean Corpuscular Volume 92.9 fL (83.0-100.0); Mean Platelet Volume 9.6 fL (9.4-12.4); Monocytes # 0.6 K/mcL (0.0-1.3); Monocytes % 13.6 %; Platelet Count 215 K/mcL (140-400); Red Blood Count 3.79 M/mcL (3.82-4.97); Red Cell Distribution Width 17.8 % (11.5-14.5); Segmented Neutrophils % 68.2 %
[2018-01-16 05:21] LABS: BUN/Creatinine Ratio 24 (6-26); Blood Urea Nitrogen 12 mg/dL (8-23); Calcium 8.5 mg/dL (8.6-10.3); Carbon Dioxide 29 mEq/L (23-29); Chloride 101 mEq/L (98-107); Glucose 121 mg/dL (70-105); Magnesium 1.3 mg/dL (1.6-2.6); Osmolality,Calculated 289 (280-300); Phosphorous 2.7 mg/dL (2.7-4.5); Potassium 3.1 mEq/L (3.5-5.1); Sodium 139 mEq/L (136-145); eGFR For Non-African Americans > 60 (> 60)
[2018-01-16] MEDS: *HR* LORazepam 2 MG/ML VIAL IVP PRN ×4 (06:02→16:33)
[2018-01-16] MEDS: MethylPREDNISolone 40 MG/ML VIAL IVP SCH (06:02)
[2018-01-16] MEDS: Levofloxacin 750 MG/150 ML 750 MG/150 ML BAG IVPB SCH (07:15)
[2018-01-16] MEDS: Budesonide/Formoterol 160/4.5 1 PUFF INH IH SCH ×2 (10:49→19:59)
--- NOTE | 2018-01-16 11:14 | Internal Med Progress Note ---
Hospitalist Progress Note - Encounter Date of Encounter: 01/16/18 Time of Encounter: 11:00 - Exam Vitals: Temp Pulse Resp BP Pulse Ox 98.0 F 92 20 134/77 91 01/16/18 10:24 01/16/18 10:24 01/16/18 10:24 01/16/18 10:24 01/16/18 10:24 Exam: Appears anxious and hs tremors in hands and legs - Assessment and Plan (1) Acute respiratory failure with hypoxia Current Visit: Yes Status: Acute Assessment and Plan: pt came in with coughing and shortness of breath. Oxygen sat was 86% on room air. CTA chest ruled out PE but showed evidence of emphysema and COPD Patrick start on nebs, steroids and antibiotics. Supplemental oxygen as needed to keep sats above 93%. (2) COPD with acute exacerbation Current Visit: Yes Status: Acute Assessment and Plan: See #1. Continue on nebs, steroids and antibiotics (3) Esophagitis Current Visit: Yes Status: Acute Assessment and Plan: EGS showed grade D esophagitis and Barrets esophagus. Started on PPI BID per GI. follow up for repeat endoscopy in 8 weeks. (4) Alcohol withdrawal delirium, acute, hyperactive Current Visit: Yes Status: Acute Assessment and Plan: Pt admits to drinking beer and vodka every day. LAst drink was a week ago. Has tremors and shakes consistent with alcohol withdrawal as well she is anxious. Continue on CIWA protocol with banana bag and prn ativan. Tremors have reduced this am (5) Gastric wall thickening Current Visit: Yes Status: Acute Assessment and Plan: Pt complains of abdominal pain and has esophageal, agstric and duodenal wall thickening on CT scan. Had endscopy done on 01/15 showing esophagitis and Goldstein's esophagus. On PPI BID. Outpatient follow up with GI for repeat endoscopy (6) Hypokalemia Current Visit: Yes Status: Acute Assessment and Plan: Replaced (7) Urinary tract infection Current Visit: Yes Status: Acute Assessment and Plan: Pt has suprapubic pain and urinalysis showed bacteria. continue on levaquin (8) DVT prophylaxis Current Visit: Yes Status: Acute Assessment and Plan: Heparin sc - Time Spent with Patient Total time spent is greater than 50% in coordination of care (as documented) at patient's floor/unit and/or counseling patient: Internal Medicine: Result - Labs CBC & Chem 7: 01/16/18 04:24 01/16/18 04:24 Labs: Short CBC 01/16/18 Range/Units 04:24 WBC 4.4 (4.3-11.1) K/mcL Hgb 11.9 (11.5-15.4) g/dL Hct 35.2 L (35.3-44.9) % Plt Count 215 (140-400) K/mcL Neutrophils # 3.0 (1.6-8.9) K/mcL BMP 01/16/18 04:24 Sodium 139 Potassium 3.1 L Chloride 101 Carbon Dioxide 29 BUN 12 Creatinine 0.50 L Glucose 121 H Calcium 8.5 L - ABG Interpretation ABG results: ABG ABG pH 7.45 pH Units (7.32-7.45) 01/15/18 08:29 ABG pCO2 43 mmHg (35-45) 01/15/18 08:29 ABG pO2 56 mmHg (85-104) L 01/15/18 08:29 ABG O2 Saturation 90 % (95-98) L 01/15/18 08:29 - Impressions Impressions Chest CTA 01/15/18 07:39 IMPRESSION: 1. No pulmonary embolism. No acute abnormality in the chest. 2. Mild emphysema and COPD. 3. A 2 mm right apical nodule. Consider a 1 year follow-up chest CT if the patient is high risk, as outlined below. 4. Diffuse gastric wall thickening, which can be seen with gastritis, or less likely malignancy. Follow-up with upper endoscopy is recommended, which was also recommended on the recent CT abdomen exam. RECOMMENDATIONS: Fleischner Society guidelines for follow-up and management of incidentally detected pulmonary nodules: Single Solid Nodule: Nodule size less than 6 mm In a low-risk patient, no routine follow-up. In a high-risk patient, optional CT at 12 months. - Low risk patients include individuals with minimal or absent history of smoking and other known risk factors. - High risk patients include individuals with a history or smoking or known risk factors. Radiology 2017 http://pubs.rsna.org/doi/full/10.1148/radiol.7973163853 D/ / 01/15/2018 08:57:51 Yuri Wild MD / lina Interpreting Provider: Yuri Wild MD Consult Discharge Plan - Plan Referrals: Danna Ortiz CNP [Primary Care Provider] -
[2018-01-16] MEDS ORDERED: Potassium Chloride Elixir 20 MEQ/15 ML UDC PO SCH (11:15)
[2018-01-16] MEDS: Sucralfate 1 GM TABLET PO SCH ×3 (11:54→20:08)
[2018-01-16] MEDS: *HR* OxyCODONE/APAP 5/325 TABLET PO PRN ×2 (12:00→20:20)
[2018-01-16] MEDS: Thiamine (B-1) 100 MG, Folic Acid 1 MG, MVI, adult with vitamin K 10 ML in 0.9 % Sodi... IVPB SCH (16:32)
[2018-01-17] MEDS: Ipratropium/Albuterol Neb 3 ML IH SCH ×5 (03:59→19:59)
[2018-01-17] MEDS: Budesonide/Formoterol 160/4.5 1 PUFF INH IH SCH ×2 (08:13→19:59)
[2018-01-17] MEDS: Levofloxacin 750 MG/150 ML 750 MG/150 ML BAG IVPB SCH (10:47)
[2018-01-17] MEDS: Sucralfate 1 GM TABLET PO SCH ×4 (10:47→20:31)
[2018-01-17] MEDS: amLODIPine 5 MG TABLET PO SCH (10:47)
[2018-01-17] MEDS: predniSONE 20 MG TABLET PO SCH (10:47)
--- NOTE | 2018-01-17 11:31 | Internal Med Progress Note ---
Hospitalist Progress Note - Encounter Date of Encounter: 01/17/18 Time of Encounter: 11:30 - Exam Vitals: Temp Pulse Resp BP Pulse Ox 97.9 F 88 17 139/76 97 01/17/18 10:09 01/17/18 10:09 01/17/18 11:09 01/17/18 10:09 01/17/18 11:09 Exam: Appears less anxious this am. Has tremors in hands and legs Gen - Awake, alert, oriented x 3, HEENT - NCAT, PERRLA, EOMI, hearing grossly intact, oropharynx benign CV - RRR, normal S1 and S2, no M/R/G, no BLE edema Resp - Normal WOB, CTAB, no W/R/R GI - Soft, NT/ND, no masses, normal bowel sounds, Skin - Warm, dry, no rashes/lesions/ulcers Psych - Normal mood and affect, - Assessment and Plan (1) Acute respiratory failure with hypoxia Current Visit: Yes Status: Acute Assessment and Plan: pt came in with coughing and shortness of breath. Oxygen sat was 86% on room air. CTA chest ruled out PE but showed evidence of emphysema and COPD Patrick start on nebs, steroids and antibiotics. Supplemental oxygen as needed to keep sats above 93%. Improved. Obtain physical therapy assessment (2) COPD with acute exacerbation Current Visit: Yes Status: Acute Assessment and Plan: See #1. Continue on nebs, steroids and antibiotics (3) Esophagitis Current Visit: Yes Status: Acute Assessment and Plan: EGS showed grade D esophagitis and Barrets esophagus. Started on PPI BID per GI. follow up for repeat endoscopy in 8 weeks. (4) Alcohol withdrawal delirium, acute, hyperactive Current Visit: Yes Status: Acute Assessment and Plan: Pt admits to drinking beer and vodka every day. LAst drink was a week ago. Has tremors and shakes consistent with alcohol withdrawal as well she is anxious. Continue on CIWA protocol with banana bag and prn ativan. Tremors have reduced this am (5) Gastric wall thickening Current Visit: Yes Status: Acute Assessment and Plan: Pt complains of abdominal pain and has esophageal, agstric and duodenal wall thickening on CT scan. Had endscopy done on 01/15 showing esophagitis and Goldstein's esophagus. On PPI BID. Outpatient follow up with GI for repeat endoscopy (6) Hypokalemia Current Visit: Yes Status: Acute Assessment and Plan: Replaced (7) Urinary tract infection Current Visit: Yes Status: Acute Assessment and Plan: Pt has suprapubic pain and urinalysis showed bacteria. continue on levaquin (8) DVT prophylaxis Current Visit: Yes Status: Acute Assessment and Plan: Heparin sc - Time Spent with Patient Total time spent is greater than 50% in coordination of care (as documented) at patient's floor/unit and/or counseling patient: Internal Medicine: Result - Labs CBC & Chem 7: 01/16/18 04:24 01/16/18 04:24 - ABG Interpretation ABG results: ABG ABG pH 7.45 pH Units (7.32-7.45) 01/15/18 08:29 ABG pCO2 43 mmHg (35-45) 01/15/18 08:29 ABG pO2 56 mmHg (85-104) L 01/15/18 08:29 ABG O2 Saturation 90 % (95-98) L 01/15/18 08:29 Consult Discharge Plan - Plan Referrals: Danna Ortiz CNP [Primary Care Provider] -
[2018-01-17] MEDS: *HR* LORazepam 2 MG/ML VIAL IVP PRN ×2 (11:55→19:05)
[2018-01-17 13:21] LABS: BUN/Creatinine Ratio 15 (6-26); Blood Urea Nitrogen 8 mg/dL (8-23); Calcium 9.4 mg/dL (8.6-10.3); Carbon Dioxide 28 mEq/L (23-29); Chloride 100 mEq/L (98-107); Glucose 143 mg/dL (70-105); Osmolality,Calculated 283 (280-300); Potassium 3.2 mEq/L (3.5-5.1); Sodium 136 mEq/L (136-145); eGFR For Non-African Americans > 60 (> 60)
[2018-01-17] MEDS: Potassium Chloride Elixir 20 MEQ/15 ML UDC PO SCH ×2 (18:57→20:30)
[2018-01-17] MEDS: Thiamine (B-1) 100 MG, Folic Acid 1 MG, MVI, adult with vitamin K 10 ML in 0.9 % Sodi... IVPB SCH (19:37)
[2018-01-18] MEDS: Ipratropium/Albuterol Neb 3 ML IH SCH ×8 (00:05→23:05)
[2018-01-18 06:02] LABS: Hematocrit 33.8 % (35.3-44.9); Immature Granulocytes % 0.4 % (0-4); Lymphocytes # 1.2 K/mcL (0.6-4.6); Lymphocytes % 22.8 %; Mean Corpuscular HGB Conc 32.5 g/dL (31.6-35.5); Mean Corpuscular Hemoglobin 31.2 pg (28.0-33.3); Mean Corpuscular Volume 95.8 fL (83.0-100.0); Mean Platelet Volume 10.1 fL (9.4-12.4); Monocytes # 0.4 K/mcL (0.0-1.3); Neutrophils # 3.6 K/mcL (1.6-8.9); Platelet Count 195 K/mcL (140-400); Red Blood Count 3.53 M/mcL (3.82-4.97); Red Cell Distribution Width 18.1 % (11.5-14.5); Segmented Neutrophils % 68.8 %
[2018-01-18 06:28] LABS: BUN/Creatinine Ratio 18 (6-26); Blood Urea Nitrogen 9 mg/dL (8-23); Calcium 9.5 mg/dL (8.6-10.3); Carbon Dioxide 29 mEq/L (23-29); Chloride 104 mEq/L (98-107); Glucose 100 mg/dL (70-105); Magnesium 1.2 mg/dL (1.6-2.6); Osmolality,Calculated 283 (280-300); Phosphorous 1.3 mg/dL (2.7-4.5); Potassium 3.8 mEq/L (3.5-5.1); Sodium 137 mEq/L (136-145); eGFR For Non-African Americans > 60 (> 60)
[2018-01-18] MEDS: Budesonide/Formoterol 160/4.5 1 PUFF INH IH SCH ×2 (08:02→20:25)
[2018-01-18] MEDS: predniSONE 20 MG TABLET PO SCH (08:52)
[2018-01-18] MEDS: Sucralfate 1 GM TABLET PO SCH ×4 (08:53→21:29)
[2018-01-18] MEDS: amLODIPine 5 MG TABLET PO SCH (08:53)
[2018-01-18] MEDS: Levofloxacin 750 MG/150 ML 750 MG/150 ML BAG IVPB SCH (08:53)
[2018-01-18] MEDS: *HR* OxyCODONE/APAP 5/325 TABLET PO PRN ×4 (10:35→23:51)
[2018-01-18] MEDS: *HR* LORazepam 2 MG/ML VIAL IVP PRN ×2 (10:35→14:57)
[2018-01-18] MEDS ORDERED: Potassium Phosphate 44 MEQ in 0.9 % Sodium Chloride 250 ML IVPB ONE (11:05)
--- NOTE | 2018-01-18 11:14 | Internal Med Progress Note ---
Hospitalist Progress Note - Encounter Date of Encounter: 01/18/18 Time of Encounter: 11:10 - Exam Vitals: Temp Pulse Resp BP Pulse Ox 99.2 F 89 18 132/89 96 01/18/18 10:32 01/18/18 10:32 01/18/18 10:32 01/18/18 10:32 01/18/18 10:32 Exam: Appears less anxious this am. Has continued tremors in hands and legs Gen - Awake, alert, oriented x 3, HEENT - NCAT, PERRLA, EOMI, hearing grossly intact, oropharynx benign CV - RRR, normal S1 and S2, no M/R/G, no BLE edema Resp - Normal WOB, CTAB, no W/R/R GI - Soft, NT/ND, no masses, normal bowel sounds, Skin - Warm, dry, no rashes/lesions/ulcers Psych - Normal mood and affect, - Assessment and Plan (1) Alcohol withdrawal delirium, acute, hyperactive Current Visit: Yes Status: Acute Assessment and Plan: Pt admits to drinking beer and vodka every day. LAst drink was a week ago. Has tremors and shakes consistent with alcohol withdrawal as well she is anxious. Continue on CIWA protocol with banana bag and prn ativan. Pt continues to have tremors requiring IV ativan (2) Wrist fracture, left Current Visit: Yes Status: Acute Assessment and Plan: Patient fel this am attempting to ambulate to the bathroom and had wrist swellin s/p fall. Xray showed distal left radius fracture. Orthopedic surgery consulted and recommend volar splint to hand. Pain control prn. Will assess for surgery in am (3) Acute respiratory failure with hypoxia Current Visit: Yes Status: Acute Assessment and Plan: pt came in with coughing and shortness of breath. Oxygen sat was 86% on room air. CTA chest ruled out PE but showed evidence of emphysema and COPD Patrick start on nebs, steroids and antibiotics. Supplemental oxygen as needed to keep sats above 93%. Improved. Physical therapy recommend d/c home with homehelath. Will initiate discharge planning once alcohol withdrawal tremors resolve (4) COPD with acute exacerbation Current Visit: Yes Status: Acute Assessment and Plan: See #1. Continue on nebs, steroids and antibiotics (5) Esophagitis Current Visit: Yes Status: Acute Assessment and Plan: EGS showed grade D esophagitis and Barrets esophagus. Started on PPI BID per GI. follow up for repeat endoscopy in 8 weeks. (6) Gastric wall thickening Current Visit: Yes Status: Acute Assessment and Plan: Pt complains of abdominal pain and has esophageal, agstric and duodenal wall thickening on CT scan. Had endscopy done on 01/15 showing esophagitis and Goldstein's esophagus. On PPI BID. Outpatient follow up with GI for repeat endoscopy (7) Hypokalemia Current Visit: Yes Status: Acute Assessment and Plan: Replaced (8) Urinary tract infection Current Visit: Yes Status: Acute Assessment and Plan: Pt has suprapubic pain and urinalysis showed bacteria. continue on levaquin (9) DVT prophylaxis Current Visit: Yes Status: Acute Assessment and Plan: Heparin sc - Time Spent with Patient Total time spent is greater than 50% in coordination of care (as documented) at patient's floor/unit and/or counseling patient: Internal Medicine: Result - Labs CBC & Chem 7: 01/18/18 04:53 01/18/18 04:53 Labs: Short CBC 01/18/18 Range/Units 04:53 WBC 5.2 (4.3-11.1) K/mcL Hgb 11.0 L (11.5-15.4) g/dL Hct 33.8 L (35.3-44.9) % Plt Count 195 (140-400) K/mcL Neutrophils # 3.6 (1.6-8.9) K/mcL BMP 01/17/18 01/18/18 12:52 04:53 Sodium 136 137 Potassium 3.2 L 3.8 Chloride 100 104 Carbon Dioxide 28 29 BUN 8 9 Creatinine 0.53 L 0.49 L Glucose 143 H 100 Calcium 9.4 9.5 - ABG Interpretation ABG results: ABG ABG pH 7.45 pH Units (7.32-7.45) 01/15/18 08:29 ABG pCO2 43 mmHg (35-45) 01/15/18 08:29 ABG pO2 56 mmHg (85-104) L 01/15/18 08:29 ABG O2 Saturation 90 % (95-98) L 01/15/18 08:29 Consult Discharge Plan - Plan Referrals: Danna Ortiz, [facility] [Primary Care Provider] -
[2018-01-19] MEDS: Ipratropium/Albuterol Neb 3 ML IH SCH ×2 (03:36→07:32)
[2018-01-19] MEDS: *HR* OxyCODONE/APAP 5/325 TABLET PO PRN ×4 (04:50→20:42)
[2018-01-19 05:32] LABS: Eosinophils % 0.1 %; Hematocrit 35.9 % (35.3-44.9); Hemoglobin 11.9 g/dL (11.5-15.4); Immature Granulocytes % 0.4 % (0-4); Lymphocytes # 1.2 K/mcL (0.6-4.6); Lymphocytes % 15.6 %; Mean Corpuscular HGB Conc 33.1 g/dL (31.6-35.5); Mean Corpuscular Volume 96.5 fL (83.0-100.0); Mean Platelet Volume 9.8 fL (9.4-12.4); Monocytes # 0.6 K/mcL (0.0-1.3); Monocytes % 7.5 %; Neutrophils # 5.7 K/mcL (1.6-8.9); Platelet Count 212 K/mcL (140-400); Red Blood Count 3.72 M/mcL (3.82-4.97); Segmented Neutrophils % 76.4 %
[2018-01-19 05:52] LABS: BUN/Creatinine Ratio 26 (6-26); Blood Urea Nitrogen 12 mg/dL (8-23); Calcium 9.7 mg/dL (8.6-10.3); Carbon Dioxide 30 mEq/L (23-29); Chloride 101 mEq/L (98-107); Glucose 92 mg/dL (70-105); Magnesium 1.7 mg/dL (1.6-2.6); Osmolality,Calculated 285 (280-300); Phosphorous 4.2 mg/dL (2.7-4.5); Potassium 4.4 mEq/L (3.5-5.1); Sodium 138 mEq/L (136-145); eGFR For Non-African Americans > 60 (> 60)
[2018-01-19] MEDS: Budesonide/Formoterol 160/4.5 1 PUFF INH IH SCH ×2 (07:32→20:30)
[2018-01-19] MEDS: Sucralfate 1 GM TABLET PO SCH ×4 (09:20→20:41)
[2018-01-19] MEDS: Levofloxacin 750 MG/150 ML 750 MG/150 ML BAG IVPB SCH (09:21)
[2018-01-19] MEDS: predniSONE 20 MG TABLET PO SCH (09:21)
[2018-01-19] MEDS: amLODIPine 5 MG TABLET PO SCH (09:21)
--- NOTE | 2018-01-19 09:52 | Internal Med Progress Note ---
Hospitalist Progress Note - Encounter Date of Encounter: 01/19/18 Time of Encounter: 09:50 - Subjective Interval History: Fell yesterday and had a wrist fracture - Exam Vitals: Temp Pulse Resp BP Pulse Ox 97.8 F 86 16 125/75 97 01/19/18 07:10 01/19/18 07:10 01/19/18 07:34 01/19/18 07:10 01/19/18 07:34 Exam: Appears less anxious this am. Has continued tremors in hands and legs Gen - Awake, alert, oriented x 3, HEENT - NCAT, PERRLA, EOMI, hearing grossly intact, oropharynx benign CV - RRR, normal S1 and S2, no M/R/G, no BLE edema Resp - Normal WOB, CTAB, no W/R/R GI - Soft, NT/ND, no masses, normal bowel sounds, Skin - Warm, dry, no rashes/lesions/ulcers Psych - Normal mood and affect, - Assessment and Plan (1) Alcohol withdrawal delirium, acute, hyperactive Current Visit: Yes Status: Acute Assessment and Plan: Pt admits to drinking beer and vodka every day. Last drink was a week ago. Has tremors and shakes consistent with alcohol withdrawal as well she is anxious. Continue on CIWA protocol with banana bag and prn ativan. Pt continues to have tremors requiring IV ativan (2) Wrist fracture, left Current Visit: Yes Status: Acute Assessment and Plan: Patient fell 01/18 attempting to ambulate to the bathroom and had wrist swelling s/p fall. Xray showed distal left radius fracture. Orthopedic surgery consulted and recommend volar splint to hand. Pain control prn. Will assess for surgery (3) Acute respiratory failure with hypoxia Current Visit: Yes Status: Acute Assessment and Plan: pt came in with coughing and shortness of breath. Oxygen sat was 86% on room air. CTA chest ruled out PE but showed evidence of emphysema and COPD Patrick start on nebs, steroids and antibiotics. Supplemental oxygen as needed to keep sats above 93%. Improved. Physical therapy recommend d/c home with homehelath. Will initiate discharge planning once alcohol withdrawal tremors resolve (4) COPD with acute exacerbation Current Visit: Yes Status: Acute Assessment and Plan: See #1. Continue on nebs, steroids and antibiotics (5) Esophagitis Current Visit: Yes Status: Acute Assessment and Plan: EGS showed grade D esophagitis and Barrets esophagus. Started on PPI BID per GI. follow up for repeat endoscopy in 8 weeks. (6) Gastric wall thickening Current Visit: Yes Status: Acute Assessment and Plan: Pt complains of abdominal pain and has esophageal, agstric and duodenal wall thickening on CT scan. Had endscopy done on 01/15 showing esophagitis and Goldstein's esophagus. On PPI BID. Outpatient follow up with GI for repeat endoscopy (7) Hypokalemia Current Visit: Yes Status: Acute Assessment and Plan: Replaced (8) Urinary tract infection Current Visit: Yes Status: Acute Assessment and Plan: Pt has suprapubic pain and urinalysis showed bacteria. continue on levaquin (9) DVT prophylaxis Current Visit: Yes Status: Acute Assessment and Plan: Heparin sc - Time Spent with Patient Total time spent is greater than 50% in coordination of care (as documented) at patient's floor/unit and/or counseling patient: Internal Medicine: Result - Labs CBC & Chem 7: 01/19/18 04:58 01/19/18 04:58 Labs: Short CBC 01/19/18 Range/Units 04:58 WBC 7.5 (4.3-11.1) K/mcL Hgb 11.9 (11.5-15.4) g/dL Hct 35.9 (35.3-44.9) % Plt Count 212 (140-400) K/mcL Neutrophils # 5.7 (1.6-8.9) K/mcL BMP 01/19/18 04:58 Sodium 138 Potassium 4.4 Chloride 101 Carbon Dioxide 30 H BUN 12 Creatinine 0.47 L Glucose 92 Calcium 9.7 - ABG Interpretation ABG results: ABG ABG pH 7.45 pH Units (7.32-7.45) 01/15/18 08:29 ABG pCO2 43 mmHg (35-45) 01/15/18 08:29 ABG pO2 56 mmHg (85-104) L 01/15/18 08:29 ABG O2 Saturation 90 % (95-98) L 01/15/18 08:29 - Impressions Impressions Wrist X-Ray 01/18/18 12:25 IMPRESSION: 1. Acute, displaced intra-articular fracture of the distal radius. 2. 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 3. Osteopenia. D/ / Loyd Laguna MD / Loyd Laguna MD Interpreting Provider: Loyd Laguna MD Consult Discharge Plan - Plan Referrals: Danna Ortiz CNP [Primary Care Provider] -
[2018-01-19] MEDS ORDERED: Ipratropium/Albuterol Neb 3 ML IH PRN (10:05)
[2018-01-19] MEDS: *HR* LORazepam 2 MG/ML VIAL IVP PRN ×2 (11:59→16:25)
--- NOTE | 2018-01-19 15:53 | Orthopedic Consult Note ---
Date of Encounter: 01/19/18 Time of Encounter: 15:49 Assessment and Plan (1) Wrist fracture, left Current Visit: Yes Status: Acute The diagnosis and treatment options were discussed with the patient. She has a displaced intra-articular fracture left distal radius. Splint has been placed. She should continue the splint. I will discuss this case with my partner Dr. Ni as she may require surgical fixation in the future. This can be done in an inpatient or outpatient setting. Continue medical management for alcohol withdrawal and respiratory failure. If she is able to be discharged prior to surgery on her wrist then we will see her in the office as an outpatient. Qualifiers: Encounter type: initial encounter Fracture type: closed Qualified Code(s) : S62.102A - Fracture of unspecified carpal bone, left wrist, initial encounter for closed fracture History of Present Illness HPI: Ms. Us is a 62 year old female with PMHx COPD, alcohol and tobacco abuse admitted several days ago for a cold drawn acute respiratory failure. She has been treated medically for of these issues throughout her hospital stay. Any she had a fall onto her left wrist. She had a deformity and pain in the left wrist and so x-rays were obtained. They showed a displaced fracture of the left distal radius. She was then placed in a splint and orthopedics was consulted. Denies any numbness or tingling in her fingers. No other orthopedic complaints. Past Med Surg Social Fam HX - Past Medical History Medical history: COPD, GERD, hypertension Psychiatric history: anxiety - Past Surgical History Surgical History: no surgical history - Social History Smoking Status: Current every day smoker Packs per day: 1 Smokeless Tobacco Status: No Alcohol use: none, occasionally Drug use: none, marijuana - Family History Mother Adopted: [place]: Sujata Tong Living Status: Age at : 84 Cause of : Cancer Hx Family Cancer: Yes (multiple) Father Adopted: [place]: Chencho Tong Family Member Ethnicity: Non- Living Status: Age at : 64 Cause of : Cancer Hx Family Cancer: Yes (Multiple) Medications and Allergies Albuterol Sulfate [Ventolin Hfa] 2 puff IH Q4-6H PRN 01/15/18 [History] Cholecalciferol (Vitamin D3) [Vitamin D3] 10,000 unit PO QWEEK 01/15/18 [History ] Escitalopram [Lexapro] 20 mg PO DAILY 01/15/18 [History] Fluticasone/Vilanterol [Breo Ellipta 100-25 Mcg INH] 2 puff PO BID 01/15/18 [ History] Ibuprofen [Ibuprofen] 800 mg PO QID PRN 01/15/18 [History] Ipratropium/Albuterol Neb [Duoneb] 3 ml IH Q6HR PRN 01/15/18 [History] Montelukast [Singulair] 10 mg PO HS 01/15/18 [History] Potassium Chloride [K-Tab ER] 10 meq PO DAILY 01/15/18 [History] Simvastatin [Zocor] 10 mg PO HS 01/15/18 [History] amLODIPine [Norvasc] 5 mg PO DAILY 01/15/18 [History] 3 Allergy/AdvReac Type Severity Reaction Status Date / Time Sulfa (Sulfonamide Allergy Difficulty Verified 01/15/18 16:08 Antibiotics) Breathing All Systems Reviewed: The remainder of the systems were reviewed and are negative except as noted in the HPI Physical Exam - Constitutional Vitals: Temp Pulse Resp BP Pulse Ox 98.6 F 93 15 108/71 92 01/19/18 14:37 01/19/18 14:37 01/19/18 14:37 01/19/18 14:37 01/19/18 14:37 General appearance IM: cooperative, A&O X 3, no acute distress, answers questions appropriately Exam: Consult Exam: Constitutional -Vitals reviewed -The patient is well developed and well nourished. Psychiatric -The patient is alert and oriented x 3. Respiratory: -Respiratory effort normal Abdomen: -Soft abdomen -Non tender -Non distended: Left upper extremity: -Left wrist deformity. The overlying skin is intact with swelling. Tenderness to palpation over wrist. Compartments soft and compressible -No significant pain with passive motion of the shoulder, elbow, fingers within the limits of the bed. -Sensation grossly intact to light touch throughout the median, radial, and ulnar distributions. -Radial pulse is present; Fingers have good capillary refill. Right upper extremity: -No deformities. The overlying skin is intact. No obvious signs of acute trauma. -No tenderness to palpation throughout. -No significant pain with passive motion of the shoulder, elbow, wrist, and fingers within the limits of the bed. -Spontaneously moves extremity without pain -Sensation grossly intact to light touch throughout the median, radial, and ulnar distributions. -Radial pulse is present; Fingers have good capillary refill. Left lower extremity: -No deformities. The overlying skin is intact. No obvious signs of acute trauma. -No tenderness to palpation throughout. -No pain with passive motion of the hip, knee, ankle, and toes within the limits of the bed. -No pain with axial loading of the thigh. -Able to dorsiflex and plantarflex the ankle and toes. -Sensation is grossly intact to light touch throughout the sural, saphenous, superficial peroneal, and deep peroneal distributions. -Toes have good capillary refill. Right lower extremity: -No deformities. The overlying skin is intact. No obvious signs of acute trauma. -No tenderness to palpation throughout. -No pain with passive motion of the hip, knee, ankle, and toes within the limits of the bed. -No pain with axial loading of the thigh. -Able to dorsiflex and plantarflex the ankle and toes. -Sensation is grossly intact to light touch throughout the sural, saphenous, superficial peroneal, and deep peroneal distributions. -Toes have good capillary refill. Results - Labs Result Diagrams: 01/19/18 04:58 01/19/18 04:58 Labs: Abnormal lab results RBC 3.72 M/mcL (3.82-4.97) L 01/19/18 04:58 RDW 18.0 % (11.5-14.5) H 01/19/18 04:58 ABG pO2 56 mmHg (85-104) L 01/15/18 08:29 ABG HCO3 30 mEq/L (21-27) H 01/15/18 08:29 ABG Total CO2 32 mEq/L (20-26) H 01/15/18 08:29 ABG O2 Saturation 90 % (95-98) L 01/15/18 08: ABG Base Excess 6 mEq/L (-2 to 3) H 01/15/18 08:29 Carbon Dioxide 30 mEq/L (23-29) H 01/19/18 04:58 Creatinine 0.47 mg/dL (0.60-1.20) L 01/19/18 04:58 POC Glucose 184 mg/dL (70-99) H 01/15/18 11:50 AST 57 Units/L (13-39) H 01/14/18 18:44 Serum Total Protein 5.7 g/dL (6.4-8.9) L 01/14/18 18:44 Globulin 2.2 g/dL (2.4-3.5) L 01/14/18 18:44 Urine Clarity Cloudy (Clear) A 01/14/18 20:05 Urine Bacteria Moderate per hpf (None-Few) H 01/14/18 20:05 H & H 01/19/18 Range/Units 04:58 Hgb 11.9 (11.5-15.4) g/dL Hct 35.9 (35.3-44.9) % All other labs normal. - Diagnostic results Wrist/Hand x-ray: report reviewed, image reviewed (Displaced intraarticular left distal radius fracture) Consult Discharge Plan - Plan Referrals: Danna Ortiz, [facility] [Primary Care Provider] -
[2018-01-19] MEDS: traMADol 50 MG TABLET PO PRN (22:54)
[2018-01-20 03:39] LABS: Eosinophils % 0.2 %; Hematocrit 34.8 % (35.3-44.9); Hemoglobin 11.6 g/dL (11.5-15.4); Immature Granulocytes % 0.3 % (0-4); Lymphocytes # 1.3 K/mcL (0.6-4.6); Lymphocytes % 20.6 %; Mean Corpuscular HGB Conc 33.3 g/dL (31.6-35.5); Mean Corpuscular Volume 96.1 fL (83.0-100.0); Mean Platelet Volume 9.7 fL (9.4-12.4); Monocytes # 0.6 K/mcL (0.0-1.3); Monocytes % 9.9 %; Neutrophils # 4.2 K/mcL (1.6-8.9); Platelet Count 230 K/mcL (140-400); Red Blood Count 3.62 M/mcL (3.82-4.97); Red Cell Distribution Width 17.9 % (11.5-14.5)
[2018-01-20 03:56] LABS: BUN/Creatinine Ratio 29 (6-26); Blood Urea Nitrogen 15 mg/dL (8-23); Calcium 9.7 mg/dL (8.6-10.3); Carbon Dioxide 28 mEq/L (23-29); Chloride 101 mEq/L (98-107); Glucose 95 mg/dL (70-105); Magnesium 1.5 mg/dL (1.6-2.6); Osmolality,Calculated 285 (280-300); Phosphorous 4.2 mg/dL (2.7-4.5); Sodium 137 mEq/L (136-145); eGFR For Non-African Americans > 60 (> 60)
[2018-01-20] MEDS: *HR* LORazepam 2 MG/ML VIAL IVP PRN ×2 (05:28→18:10)
[2018-01-20] MEDS: *HR* OxyCODONE/APAP 5/325 TABLET PO PRN ×4 (05:31→20:53)
[2018-01-20] MEDS: predniSONE 20 MG TABLET PO SCH (09:21)
[2018-01-20] MEDS: Sucralfate 1 GM TABLET PO SCH ×4 (09:21→20:53)
[2018-01-20] MEDS: Levofloxacin 750 MG/150 ML 750 MG/150 ML BAG IVPB SCH (09:21)
[2018-01-20] MEDS: amLODIPine 5 MG TABLET PO SCH (09:21)
[2018-01-20] MEDS: Budesonide/Formoterol 160/4.5 1 PUFF INH IH SCH ×2 (10:30→19:58)
--- NOTE | 2018-01-20 11:10 | Orthopedics Progress Note ---
Date of Encounter: 01/20/18 Time of Encounter: 11:09 - Assessment and Plan (1) Wrist fracture, left Current Visit: Yes Status: Acute Qualifiers: Encounter type: initial encounter Fracture type: closed Qualified Code(s) : S62.102A - Fracture of unspecified carpal bone, left wrist, initial encounter for closed fracture Subjective Interval history: Discussed case with Dr Ni. He will plan on ORIF of the L distal radius tomorrow, 01/21/18. Continue splint, ice and elevation. NPO at PR for surgery. Objective Vital signs: Vital Signs Temp Pulse Resp BP Pulse Ox 01/20/18 10:27 98.5 F 89 14 107/71 98 01/20/18 07:13 98.7 F 88 16 120/77 99 01/20/18 04:57 98.9 F 77 14 124/84 98 01/20/18 01:50 16 96 01/19/18 20:31 15 96 01/19/18 19:32 98.2 F 81 15 116/76 96 01/19/18 14:37 98.6 F 93 15 108/71 92 Intake and Output 01/19/18 01/20/18 01/20/18 23:59 07:59 15:59 Intake Total 480 / 480 240 / 240 310 / 310 Output Total 200 / 200 1200 / 1200 300 / 300 Balance 280 / 280 -960 / -960 Intake: IV Fluids 150 / 150 Levaquin Premix 750mg/150 mL 150 / 150 750 mg In 150 ml @ 100 mls/hr IVPB DAILY [facility] Rx#:[id number] Oral 480 / 480 240 / 240 160 / 160 Output: Urine 200 / 200 1200 / 1200 300 / 300 Other: Meal Dinner Breakfast Percent of Meal Consumed 25% 25% Stool Size Small Stool Consistency soft formed Stool Color Brown - Labs CBC & BMP: 01/20/18 02:58 01/20/18 02:58 Labs: Abnormal lab results RBC 3.62 M/mcL (3.82-4.97) L 01/20/18 02:58 Hct 34.8 % (35.3-44.9) L 01/20/18 02:58 RDW 17.9 % (11.5-14.5) H 01/20/18 02:58 ABG pO2 56 mmHg (85-104) L 01/15/18 08:29 ABG HCO3 30 mEq/L (21-27) H 01/15/18 08:29 ABG Total CO2 32 mEq/L (20-26) H 01/15/18 08:29 ABG O2 Saturation 90 % (95-98) L 01/15/18 08:29 ABG Base Excess 6 mEq/L (-2 to 3) H 01/15/18 08:29 Creatinine 0.52 mg/dL (0.60-1.20) L 01/20/18 02:58 BUN/Creatinine Ratio 29 (6-26) H 01/20/18 02:58 POC Glucose 184 mg/dL (70-99) H 01/15/18 11:50 Magnesium 1.5 mg/dL (1.6-2.6) L 01/20/18 02:58 AST 57 Units/L (13-39) H 01/14/18 18:44 Serum Total Protein 5.7 g/dL (6.4-8.9) L 01/14/18 18:44 Globulin 2.2 g/dL (2.4-3.5) L 01/14/18 18:44 Urine Clarity Cloudy (Clear) A 01/14/18 20:05 Urine Bacteria Moderate per hpf (None-Few) H 01/14/18 20:05 Consult Discharge Plan - Plan Referrals: Danna Ortiz, [facility] [Primary Care Provider] -
--- NOTE | 2018-01-20 11:17 | Internal Med Progress Note ---
Hospitalist Progress Note - Encounter Date of Encounter: 01/20/18 Time of Encounter: 11:00 - Subjective Interval History: Fell yesterday and had a wrist fracture - Exam Vitals: Temp Pulse Resp BP Pulse Ox 98.5 F 89 14 107/71 98 01/20/18 10:27 01/20/18 10:27 01/20/18 10:27 01/20/18 10:27 01/20/18 10:27 Exam: Appears less anxious this am. Has continued tremors in hands and legs Gen - Awake, alert, oriented x 3, HEENT - NCAT, PERRLA, EOMI, hearing grossly intact, oropharynx benign CV - RRR, normal S1 and S2, no M/R/G, no BLE edema Resp - Normal WOB, CTAB, no W/R/R GI - Soft, NT/ND, no masses, normal bowel sounds, Skin - Warm, dry, no rashes/lesions/ulcers Psych - Normal mood and affect, - Assessment and Plan (1) Alcohol withdrawal delirium, acute, hyperactive Current Visit: Yes Status: Acute Assessment and Plan: Pt admits to drinking beer and vodka every day. Last drink was a week ago. Has tremors and shakes consistent with alcohol withdrawal as well she is anxious. Continue on CIWA protocol with banana bag and prn ativan. Pt continues to have tremors requiring IV ativan. ocntinue to monitor (2) Wrist fracture, left Current Visit: Yes Status: Acute Assessment and Plan: Patient fell 01/18 attempting to ambulate to the bathroom and had wrist swelling s/p fall. Xray showed distal left radius fracture. Orthopedic surgery consulted and recommend volar splint to hand. Pain control prn. Plan for surgery in am. NPO from midnight (3) Acute respiratory failure with hypoxia Current Visit: Yes Status: Acute Assessment and Plan: pt came in with coughing and shortness of breath. Oxygen sat was 86% on room air. CTA chest ruled out PE but showed evidence of emphysema and COPD Patrick start on nebs, steroids and antibiotics. Supplemental oxygen as needed to keep sats above 93%. Improved. Physical therapy recommend d/c home with homehelath. Will initiate discharge planning once alcohol withdrawal tremors resolve (4) COPD with acute exacerbation Current Visit: Yes Status: Acute Assessment and Plan: See #1. Continue on nebs, steroids and antibiotics (5) Esophagitis Current Visit: Yes Status: Acute Assessment and Plan: EGS showed grade D esophagitis and Barrets esophagus. Started on PPI BID per GI. follow up for repeat endoscopy in 8 weeks. (6) Gastric wall thickening Current Visit: Yes Status: Acute Assessment and Plan: Pt complains of abdominal pain and has esophageal, agstric and duodenal wall thickening on CT scan. Had endscopy done on 01/15 showing esophagitis and Goldstein's esophagus. On PPI BID. Outpatient follow up with GI for repeat endoscopy (7) Hypokalemia Current Visit: Yes Status: Acute Assessment and Plan: Replaced (8) Urinary tract infection Current Visit: Yes Status: Acute Assessment and Plan: Pt has suprapubic pain and urinalysis showed bacteria. continue on levaquin (9) DVT prophylaxis Current Visit: Yes Status: Acute Assessment and Plan: Heparin sc - Time Spent with Patient Total time spent is greater than 50% in coordination of care (as documented) at patient's floor/unit and/or counseling patient: Internal Medicine: Result - Labs CBC & Chem 7: 01/20/18 02:58 01/20/18 02:58 Labs: Short CBC 01/20/18 Range/Units 02:58 WBC 6.1 (4.3-11.1) K/mcL Hgb 11.6 (11.5-15.4) g/dL Hct 34.8 L (35.3-44.9) % Plt Count 230 (140-400) K/mcL Neutrophils # 4.2 (1.6-8.9) K/mcL BMP 01/20/18 02:58 Sodium 137 Potassium 4.0 Chloride 101 Carbon Dioxide 28 BUN 15 Creatinine 0.52 L Glucose 95 Calcium 9.7 - ABG Interpretation ABG results: ABG ABG pH 7.45 pH Units (7.32-7.45) 01/15/18 08:29 ABG pCO2 43 mmHg (35-45) 01/15/18 08:29 ABG pO2 56 mmHg (85-104) L 01/15/18 08:29 ABG O2 Saturation 90 % (95-98) L 01/15/18 08:29 Consult Discharge Plan - Plan Referrals: Danna Ortiz, [facility] [Primary Care Provider] - (2) Wrist fracture, left Qualifiers: Encounter type: initial encounter Fracture type: closed Qualified Code(s): S62.102A - Fracture of unspecified carpal bone, left wrist, initial encounter for closed fracture
[2018-01-20] MEDS ORDERED: *HR* LORazepam 2 MG/ML VIAL IVP ONE (11:37)
[2018-01-20] MEDS: traMADol 50 MG TABLET PO PRN (20:23)
[2018-01-21] MEDS: *HR* OxyCODONE/APAP 5/325 TABLET PO PRN ×2 (05:17→10:46)
[2018-01-21 07:04] LABS: Basophils % 0.2 %; Eosinophils % 0.5 %; Hematocrit 33.6 % (35.3-44.9); Immature Granulocytes % 0.5 % (0-4); Lymphocytes # 1.8 K/mcL (0.6-4.6); Lymphocytes % 30.6 %; Mean Corpuscular HGB Conc 32.7 g/dL (31.6-35.5); Mean Corpuscular Hemoglobin 31.3 pg (28.0-33.3); Mean Corpuscular Volume 95.5 fL (83.0-100.0); Mean Platelet Volume 9.5 fL (9.4-12.4); Monocytes # 0.7 K/mcL (0.0-1.3); Monocytes % 11.9 %; Neutrophils # 3.3 K/mcL (1.6-8.9); Platelet Count 265 K/mcL (140-400); Red Blood Count 3.52 M/mcL (3.82-4.97); Red Cell Distribution Width 17.7 % (11.5-14.5); Segmented Neutrophils % 56.3 %
[2018-01-21 07:17] LABS: BUN/Creatinine Ratio 35 (6-26); Blood Urea Nitrogen 17 mg/dL (8-23); Calcium 9.8 mg/dL (8.6-10.3); Carbon Dioxide 28 mEq/L (23-29); Chloride 101 mEq/L (98-107); Glucose 90 mg/dL (70-105); Magnesium 1.3 mg/dL (1.6-2.6); Osmolality,Calculated 285 (280-300); Phosphorous 3.7 mg/dL (2.7-4.5); Potassium 3.5 mEq/L (3.5-5.1); Sodium 137 mEq/L (136-145); eGFR For Non-African Americans > 60 (> 60)
[2018-01-21] MEDS: Sucralfate 1 GM TABLET PO SCH ×4 (07:25→21:15)
[2018-01-21] MEDS: amLODIPine 5 MG TABLET PO SCH (07:26)
[2018-01-21] MEDS: Levofloxacin 750 MG/150 ML 750 MG/150 ML BAG IVPB SCH (07:26)
[2018-01-21] MEDS: predniSONE 20 MG TABLET PO SCH (07:26)
--- NOTE | 2018-01-21 07:46 | Orthopedics Progress Note ---
Date of Encounter: 01/21/18 Time of Encounter: 07:37 Subjective Interval history: S: Discuss the case with my partner Dr. Lemons. Patient is admitted for other reasons however sustained a fall in house and was found to have a left distal radius fracture with significant angulation. O: Afebrile on the vital signs are stable Evaluation of the left wrist shows that the skin and the soft tissue envelope are intact with moderate ecchymosis volarly. Deformity consistent with her known Colles' fracture The patient can actively flex and extend all digits, extend the thumb, cross the index and long fingers, make an okay sign, and oppose the thumb. The fingertips are all grossly sensate and well-perfused, and the radial artery pulse is 2+. Diagnostic Imaging: I did personally review and interpret x-rays of the left wrist show a distal radius fracture with significant apex volar angulation and shortening A: Left distal radius fracture P: I did discuss the diagnosis in detail with the patient. She does have a left distal radius fracture. My recommendation is for open reduction and internal fixation in order to reduce and stabilize the fracture. The risks discussed included but were not limited to stiffness, bleeding, infection, blood clots, damage to neurovascular structures, tendons, ligaments, and bone. Also discussed was the risk of continued symptoms and possible need for further procedures. I did discuss the anesthesia risks including stroke, heart attack, and . I did discuss the reasonable, foreseeable postoperative course with the patient. She did wish to proceed and consent was obtained. Objective Vital signs: Vital Signs Temp Pulse Resp BP Pulse Ox 01/21/18 06:49 98.2 F 73 19 148/80 96 01/21/18 04:26 98.2 F 88 15 112/76 93 01/20/18 23:41 98.5 F 101 15 129/81 97 01/20/18 19:59 15 98 01/20/18 19:14 99.0 F 98 15 108/73 96 01/20/18 14:32 97.9 F 105 17 101/65 100 01/20/18 10:30 16 99 01/20/18 10:27 98.5 F 89 14 107/71 98 Intake and Output 01/20/18 01/20/18 01/21/18 15:59 23:59 07:59 Intake Total 1060 / 1060 240 / 240 0 / 0 Output Total 600 / 600 425 / 425 400 / 400 Balance 460 / 460 -185 / -185 -400 / -400 Intake: IV Fluids 300 / 300 Levaquin Premix 750mg/150 mL 300 / 300 750 mg In 150 ml @ 100 mls/hr IVPB DAILY [facility] Rx#:[id number] Oral 760 / 760 240 / 240 0 / 0 Output: Urine 600 / 600 425 / 425 400 / 400 Other: Meal Lunch Dinner Percent of Meal Consumed 25% 75% Stool Size Moderate Small Stool Consistency soft soft formed formed Stool Color Brown Brown # Bowel Movements 1 Blood Glucose* 105 - Labs CBC & BMP: 01/21/18 06:32 01/21/18 06:32 Labs: Abnormal lab results RBC 3.52 M/mcL (3.82-4.97) L 01/21/18 06:32 Hgb 11.0 g/dL (11.5-15.4) L 01/21/18 06:32 Hct 33.6 % (35.3-44.9) L 01/21/18 06:32 RDW 17.7 % (11.5-14.5) H 01/21/18 06:32 ABG pO2 56 mmHg (85-104) L 01/15/18 08:29 ABG HCO3 30 mEq/L (21-27) H 01/15/18 08:29 ABG Total CO2 32 mEq/L (20-26) H 01/15/18 08:29 ABG O2 Saturation 90 % (95-98) L 01/15/18 08:29 ABG Base Excess 6 mEq/L (-2 to 3) H 01/15/18 08:29 Creatinine 0.49 mg/dL (0.60-1.20) L 01/21/18 06:32 BUN/Creatinine Ratio 35 (6-26) H 01/21/18 06:32 POC Glucose 105 mg/dL (70-99) H 01/21/18 05:29 Magnesium 1.3 mg/dL (1.6-2.6) L 01/21/18 06:32 AST 57 Units/L (13-39) H 01/14/18 18:44 Serum Total Protein 5.7 g/dL (6.4-8.9) L 01/14/18 18:44 Globulin 2.2 g/dL (2.4-3.5) L 01/14/18 18:44 Urine Clarity Cloudy (Clear) A 01/14/18 20:05 Urine Bacteria Moderate per hpf (None-Few) H 01/14/18 20:05 Consult Discharge Plan - Plan Referrals: Danna Ortiz CNP [Primary Care Provider] -
[2018-01-21] MEDS: Budesonide/Formoterol 160/4.5 1 PUFF INH IH SCH ×2 (10:47→20:29)
--- NOTE | 2018-01-21 15:26 | Internal Med Progress Note ---
Hospitalist Progress Note - Encounter Date of Encounter: 01/21/18 Time of Encounter: 10:20 - Subjective Interval History: left wrist pain present, currently tolerable. no numbness/tingling of hand/ fingers, finger rom intact. ETOH withdrawal symptoms cont to improve. tremor improving. no palpitations, anxiety, nausea or emesis. Denies hallucinations or seizure like activity. She does not wear O2 at home, has not been tried off o2 this admission per pt. no sob at rest. no cough or wheezing currently. - Exam Vitals: Temp Pulse Resp BP Pulse Ox 98.1 F 89 14 101/67 96 01/21/18 14:01 01/21/18 14:01 01/21/18 14:01 01/21/18 14:01 01/21/18 14:01 Exam: General: awake, alert, appears stated age HEENT:EOM, pupils equal, round, moist mucus membranes, no scleral icterus Cardiovascular:regular rate and rhythm, normal S1 & S2, no rubs, murmurs or gallops. cap refill normal Left fingers, warm fingers Lungs:Normal breath sounds, no wheezes, or crackles. Normal respiratory effort on O2 nc Extremities:LUE wrist in splint Neurological: AAOx3, CN grossly intact, no focal deficits, faint bl hand tremor , sensation intact and equal to light touch in bl hands/fingers Skin:Normal color, no rash, no pallor, no jaundice - Assessment and Plan (1) Acute respiratory failure with hypoxia Current Visit: Yes Status: Acute Assessment and Plan: pt came in with coughing and shortness of breath. Oxygen sat was 86% on room air. CTA chest ruled out PE but showed evidence of emphysema and COPD -cont nebs, steroids and antibiotics -Supplemental oxygen as needed to keep sats above 93%. -once post op will attempt to wean O2 NC (2) COPD with acute exacerbation Current Visit: Yes Status: Acute Assessment and Plan: Improved -see above -completion of 7d Levaquin for copd exacerbation 01/21 -will begin to wean steroids with completion of wean as outpt -PT rec for home with [facility] (3) Alcohol withdrawal delirium, acute, hyperactive Current Visit: Yes Status: Acute Assessment and Plan: Pt admits to drinking beer and vodka every day. Last drink was a week ago. Has tremors and shakes consistent with alcohol withdrawal as well she is anxious. - delirium resolved -etoh w/d improving -Continue on CIWA protocol -completed banana bag x3 -change to oral thiamine, folate, MVI daily tomorrow once no longer npo -monitor electrolytes in setting of etoh w/d (4) Gastric wall thickening Current Visit: Yes Status: Acute Assessment and Plan: Pt complains of abdominal pain and has esophageal, gasstric and duodenal wall thickening on CT scan. Had endscopy done on 01/15 showing esophagitis and Goldstein's esophagus. On PPI BID. Outpatient follow up with GI for repeat endoscopy (5) DVT prophylaxis Current Visit: Yes Status: Acute Assessment and Plan: Heparin sc held for OR, resume 01/22, scds today (6) Esophagitis Current Visit: Yes Status: Acute Assessment and Plan: EGS showed grade D esophagitis and Barrets esophagus. Started on PPI BID per GI. follow up for repeat endoscopy in 8 weeks. (7) Urinary tract infection Current Visit: Yes Status: Acute Assessment and Plan: Pt has suprapubic pain. -she has been treated with Levaquin by previous provider -as d/ pharm 01/21 rec is to dc levaquin given UA not largely remarkable (8) Wrist fracture, left Current Visit: Yes Status: Acute Assessment and Plan: Patient fell 01/18 attempting to ambulate to the bathroom and had wrist swelling s/p fall. -Xray showed distal left radius fracture. -Orthopedic surgery consulted and recommend volar splint to hand -Plan for surgery 01/21 -prn pain control -resume hep sc vte ppx tomorrow (9) Hypokalemia Current Visit: Yes Status: Acute Assessment and Plan: Resolved with repletion -cont to monitor (10) Hypomagnesemia Current Visit: Yes Status: Acute Assessment and Plan: IV repletion today repeat lab in am DVT Prophylaxis: currently scds, heparin sq on hold for or - Time Spent with Patient Total time spent is greater than 50% in coordination of care (as documented) at patient's floor/unit and/or counseling patient: 25 - 35 minutes Plan of Care Discussed with: patient Internal Medicine: Result - Labs CBC & Chem 7: 01/21/18 06:32 01/21/18 06:32 Labs: Short CBC 01/21/18 Range/Units 06:32 WBC 5.8 (4.3-11.1) K/mcL Hgb 11.0 L (11.5-15.4) g/dL Hct 33.6 L (35.3-44.9) % Plt Count 265 (140-400) K/mcL Neutrophils # 3.3 (1.6-8.9) K/mcL BMP 01/21/18 06:32 Sodium 137 Potassium 3.5 Chloride 101 Carbon Dioxide 28 BUN 17 Creatinine 0.49 L Glucose 90 Calcium 9.8 - ABG Interpretation ABG results: ABG ABG pH 7.45 pH Units (7.32-7.45) 01/15/18 08:29 ABG pCO2 43 mmHg (35-45) 01/15/18 08:29 ABG pO2 56 mmHg (85-104) L 01/15/18 08:29 ABG O2 Saturation 90 % (95-98) L 01/15/18 08:29 Consult Discharge Plan - Plan Referrals: Danna Ortiz, CAT [Primary Care Provider] - (8) Wrist fracture, left Qualifiers: Encounter type: initial encounter Fracture type: closed Qualified Code(s): S62.102A - Fracture of unspecified carpal bone, left wrist, initial encounter for closed fracture
[2018-01-21] MEDS ORDERED: *HR* Propofol 200 MG/20 ML VIAL IVP ONE (16:26)
[2018-01-21] MEDS ORDERED: Lidocaine -MPF 2% 2 ML VIAL ONE (16:26)
[2018-01-21] MEDS ORDERED: *HR* FentaNYL (PF) 100 MCG/2 ML VIAL ONE (16:26)
[2018-01-21] MEDS ORDERED: Dexamethasone 4 MG/ML VIAL ONE (16:26)
[2018-01-21] MEDS ORDERED: *HR* Midazolam HCl 2 MG/2 ML VIAL ONE (16:26)
[2018-01-21] MEDS ORDERED: Ondansetron 4 MG/2 ML VIAL ONE (16:26)
--- NOTE | 2018-01-21 16:30 | Anesthesia Evaluation PreOp ---
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 History: CVA (20 years ago, denies rsidual deficit) Other Medical History: GERD, Other (anxiety/depression) Anesthesia History: No Prior Anesthetic Complications, Past Anesthesia Alcohol Use: heavy Drug use: marijuana Medications and Allergies Albuterol Sulfate [Ventolin Hfa] 2 puff IH Q4-6H PRN 01/15/18 [History] Cholecalciferol (Vitamin D3) [Vitamin D3] 10,000 unit PO QWEEK 01/15/18 [History ] Escitalopram [Lexapro] 20 mg PO DAILY 01/15/18 [History] Fluticasone/Vilanterol [Breo Ellipta 100-25 Mcg INH] 2 puff PO BID 01/15/18 [ History] Ibuprofen [Ibuprofen] 800 mg PO QID PRN 01/15/18 [History] Ipratropium/Albuterol Neb [Duoneb] 3 ml IH Q6HR PRN 01/15/18 [History] Montelukast [Singulair] 10 mg PO HS 01/15/18 [History] Potassium Chloride [K-Tab ER] 10 meq PO DAILY 01/15/18 [History] Simvastatin [Zocor] 10 mg PO HS 01/15/18 [History] amLODIPine [Norvasc] 5 mg PO DAILY 01/15/18 [History] 3 Allergy/AdvReac Type Severity Reaction Status Date / Time Sulfa (Sulfonamide Allergy Difficulty Verified 01/15/18 16:08 Antibiotics) Breathing - Meds/Allergy Pre-op Review Medications Reviewed: Yes Allergies Reviewed: Yes Beta Blockers on Current Med List: No Anesthesia Results - Labs 01/21/18 06:32 01/21/18 06:32 Anesthesia Exam Vital Signs/O2 Sat/Glucose, Most Recent Temp Pulse Resp BP Pulse Ox 98.1 F 89 14 101/67 96 01/21/18 14:01 01/21/18 14:01 01/21/18 14:01 01/21/18 14:01 01/21/18 14:01 Blood Glucose* 119 Height: 5'1''/1.55m Weight: 107 lbs/48.9 kg NPO (# of Hours): 8 Pain Scale: 0 (at rest) Pain Scale Used: Numeric (1 - 10) - HEENT Pupil (Motor): EOMI Mallampati: II Teeth: Edentulous Oral Opening: Greater than 3 - PORTABLE SAWYER LOC: Oriented PORTABLE SAWYER Motor: Normal RUE, Normal LUE, Normal RLE, Normal LLE, Normal Face PORTABLE SAWYER Sensory: Normal: RUE, LUE, RLE, LLE, Face - Cardiac Rhythm: Regular Murmur: None - Pulmonary Breath Sounds: bilateral Clear Respiratory Effort: Symmetrical Anesthesia Assess/Plan ASA Score: 3 Modified Lela Scale for Level of Consciousness: Cooperative, oriented, and tranquil Anesthetic Plan: General, Regional Monitoring Plan: Standard Monitors Recovery Plan: PACU
[2018-01-21] MEDS ORDERED: ROPIVACAINE HCL/PF 0.5% 30 ML VIAL ONE (16:36)
--- NOTE | 2018-01-21 18:17 | Anesthesia Procedures ---
Date of Encounter: 01/21/18 Time of Encounter: 17:05 Procedures: Anesthesia - Nerve Block Procedure Date: 01/21/18 Time: 17:05 Allergies/Adv Reactions: Sulfa Pre-op Diagnosis: Left distal radius fracture Surgical Procedure: ORIF Left distal radius Checklist: Correct Patient Identifier, Correct procedure, History checked Correct side: Left Blood Thinner: No Monitor Applied: EKG, BP, Pulse Oximetry Supplemental Oxygen via Nasal Cannula (L/min): 2 Sedation: Versed (mg): 2 Sedation: Fentanyl (mcg): 50 Indication: Post Op Analgesia Pre-op Neuro Deficits: No Block Type: Supraclavicular Catheter placed: No Sterile Technique: Yes Ultrasound used: Yes Anatomy identified: Yes Visual spread of Local: Yes Neuro Stimulation: No Blood on Needle Aspiration: No Smooth Injection of Local: Yes Pain with Injection of Local: No Prep: Chlorhexadine Needle: 22 x 50 mm Stimuplex Local: Ropivacaine (0.5% 30ml), Other (decadron 8mg) Volume (cc): 30 Number of Attempts: 1 Complications: None/effective block Vitals: Vital Signs Temperature 98.5 F 01/14/18 18:04 Pulse Rate 105 01/14/18 18:04 Respiratory Rate 18 01/14/18 18:04 Blood Pressure 91/55 01/14/18 18:04 O2 Sat by Pulse Oximetry 86 01/14/18 18:04 Temperature 98.1 F 01/21/18 14:01 Pulse Rate 78 01/21/18 17:05 Respiratory Rate 16 01/21/18 17:05 Blood Pressure 126/84 01/21/18 17:05 O2 Sat by Pulse Oximetry 98 01/21/18 17:05 Oxygen Delivery Oxygen Delivery Nasal Cannula
[2018-01-21] MEDS ORDERED: Naloxone 0.4 MG/ML INJ IVP PRN ×2 (18:18→19:13)
[2018-01-21] MEDS ORDERED: *HR* Morphine 2 MG/ML SYRINGE IVP PRN (18:18)
[2018-01-21] MEDS ORDERED: *HR* Promethazine 25 MG/ML VIAL IVP PRN ×2 (18:18→19:13)
[2018-01-21] MEDS ORDERED: Ondansetron 4 MG/2 ML VIAL IVP ONE ×2 (18:18→19:13)
[2018-01-21] MEDS ORDERED: Dexamethasone 4 MG/ML VIAL IVP ONE (18:18)
[2018-01-21] MEDS ORDERED: Ringers Solution, Lactated 1,000 ML IVC SCH (18:30)
--- NOTE | 2018-01-21 18:53 | Orthopedic Operative Note ---
Date of procedure: 01/21/18 Procedure: OPERATIVE REPORT SURGEON: Tyrese Ni MD PREOPERATIVE DIAGNOSIS: Extra-articular left distal radius fracture POSTOPERATIVE DIAGNOSIS: Same PROCEDURE: Open reduction and internal fixation of the left distal radius ANESTHESIA: General anesthesia/axillary block SPECIMENS: There were no specimens IMPLANTS: [employer] Geminus volar locking distal radius plate LOCAL INJECTION: None PREOPERATIVE NOTE AND INDICATIONS: This patient is a 62-year-old female who sustained a left distal radius fracture after a fall in the hospital. Given the position and angulation of the fracture recommendation is for the above procedure to realign and stabilize the injury. The surgical plan was discussed with the patient. The risks, benefits, alternatives, and potential complications of this procedure were discussed with the patient including injury to veins, arteries, nerves, tendons, ligaments, and bone. Also discussed were the risks of infection, bleeding, pain, blood clots, the possible need for a blood transfusion, the possible need for further procedures, heart attack, stroke, and . Additional risks include malunion , nonunion, tendon ruptures, and complex regional pain syndrome. All of this was explained in simple terms, and the patient verbalized understanding and wished to proceed. Consent was given to proceed with surgery. PROCEDURE: The patient was seen in the preoperative holding area where the identify and the consent were confirmed. The left wrist was marked. Final questions were answered. The patient was brought back to the operating room and placed supine on the operating room table. A huddle was performed with the patient and all vital surgical team members confirming patient identity, the correct procedure, and the correct operative site. Gen. anesthesia was administered. The operative extremity was prepped and draped in the usual sterile fashion. A surgical time out was performed immediately preceding the incision with all personnel in the operating room to confirm patient identity, the correct operative site and extremity, correct radiographic studies, availability of appropriate surgical equipment, and agreement on the planned procedure. A volar Tera incision/approach was made and the pronator was taken down. The brachiaoradialis was taken down. The fracture was noted to be extra-articular and debrided of the fracture hematoma and easily reduced. The definitive plate was placed and fixed proximally with one cortical screw and 2 lockers and distally with smooth pegs. X-rays confirmed good reduction of fracture and placement of the hardware. The instrument, sponge, and needle counts were correct after wound closure. POST OPERATIVE PLAN: Okay to discharge tomorrow and follow-up with me in 2 weeks for x-rays and stitch removal. Nonweightbearing to the left upper extremity. Was there an community relations assistant present: No Estimated blood loss (cc): 1
--- NOTE | 2018-01-21 18:56 | Anesthesia Evaluation Post Op ---
Date of Encounter: 01/21/18 Time of Encounter: 18:56 - Vital Signs Vital Signs: Vital Signs/O2 Sat, Most Current Temp Pulse Resp BP Pulse Ox 97.6 F 78 18 140/79 95 01/21/18 18:53 01/21/18 18:53 01/21/18 18:53 01/21/18 18:53 01/21/18 18:53 - Lungs Lungs: Clear Ascult./Percussion - Airway Airway: Non-obstructed - Cardiovascular Regular Rate - Mental Status Mental Status: Alert & Oriented, Answers Appropriately - Pain Pain Scale: 0 Pain Scale used: Numeric (1 - 10) - Nausea Vomiting Nausea Vomiting: Not Present - Hydration Hydration: NPO, Has not voided - Discharge PostOp Status: Transfer Patient to floor
[2018-01-21] MEDS ORDERED: *HR* LORazepam 2 MG/ML VIAL IVP PRN ×3 (19:13)
[2018-01-21] MEDS ORDERED: Acetaminophen 325 MG TABLET PO PRN (19:13)
[2018-01-21] MEDS ORDERED: Ipratropium/Albuterol Neb 3 ML IH PRN (19:13)
[2018-01-22 04:25] LABS: Hematocrit 31.8 % (35.3-44.9); Hemoglobin 10.5 g/dL (11.5-15.4); Immature Granulocytes % 0.9 % (0-4); Lymphocytes % 10.5 %; Mean Corpuscular Hemoglobin 31.8 pg (28.0-33.3); Mean Corpuscular Volume 96.4 fL (83.0-100.0); Mean Platelet Volume 9.2 fL (9.4-12.4); Monocytes % 10.5 %; Platelet Count 288 K/mcL (140-400); Red Cell Distribution Width 17.6 % (11.5-14.5); Segmented Neutrophils % 77.9 %
[2018-01-22 04:26] LABS: Basophils % 0.2 %; Lymphocytes # 0.7 K/mcL (0.6-4.6); Monocytes # 0.7 K/mcL (0.0-1.3)
[2018-01-22 04:44] LABS: BUN/Creatinine Ratio 37 (6-26); Blood Urea Nitrogen 18 mg/dL (8-23); Calcium 8.9 mg/dL (8.6-10.3); Carbon Dioxide 30 mEq/L (23-29); Chloride 101 mEq/L (98-107); Glucose 101 mg/dL (70-105); Magnesium 1.5 mg/dL (1.6-2.6); Osmolality,Calculated 284 (280-300); Phosphorous 3.5 mg/dL (2.7-4.5); Potassium 3.8 mEq/L (3.5-5.1); Sodium 136 mEq/L (136-145); eGFR For Non-African Americans > 60 (> 60)
--- NOTE | 2018-01-22 07:06 | Orthopedics Progress Note ---
Date of Encounter: 01/22/18 Time of Encounter: 07:04 Subjective Interval history: S: Resting in bed comfortably with no complaints O: Afebrile on the vital signs are stable Left upper extremity in the short arm splint Neurovascularly intact A: Open reduction and internal fixation of left distal radius P: Elevation of the left upper extremity PT and OT consults for digital motion exercises Nonweightbearing to left upper extremity Orthopedically stable for discharge Follow-up with me in 2 weeks for x-rays and stitch removal. Objective Vital signs: Vital Signs Temp Pulse Resp BP Pulse Ox 01/22/18 06:40 98.4 F 82 14 119/74 96 01/22/18 05:27 98.2 F 76 18 92/67 96 01/22/18 04:04 97.6 F 70 16 122/77 100 01/22/18 00:40 97.6 F 88 16 111/72 97 01/21/18 22:19 97 01/21/18 21:10 97.6 F 83 16 106/62 97 01/21/18 20:29 18 98 01/21/18 20:10 97.6 F 80 16 129/82 96 01/21/18 19:40 97.6 F 80 16 122/79 97 01/21/18 19:10 98.4 F 86 16 132/81 92 01/21/18 19:03 97.6 F 81 18 137/80 95 01/21/18 18:53 97.6 F 78 18 140/79 95 01/21/18 18:43 97.5 F L 85 18 123/69 95 01/21/18 18:33 97.2 F L 87 18 137/91 99 01/21/18 17:05 78 16 126/84 98 01/21/18 14:01 98.1 F 89 14 101/67 96 01/21/18 10:48 20 94 01/21/18 10:15 98.3 F 78 20 117/71 94 Intake and Output 01/21/18 01/21/18 01/22/18 15:59 23:59 07:59 Intake Total 254 / 254 Output Total 300 / 300 Balance -46 / -46 -1 1 Intake: IV Fluids 254 / 254 Levaquin Premix 750mg/150 mL 150 / 150 750 mg In 150 ml @ 100 mls/hr IVPB DAILY [facility] Rx#:[id number] Magnesium Sulfate 2 GM In 0.9 % 104 / 104 Sodium Chloride 100 ML @ 52 mls/hr IVPB ONCE ONE Rx#: [id number] Oral 0 / 0 Output: Urine 300 / 300 Estimated Blood Loss Other: Meal NPO NPO # Voids 1 Blood Glucose* 119 - Labs CBC & BMP: 01/22/18 03:50 01/22/18 03:50 Labs: Abnormal lab results RBC 3.30 M/mcL (3.82-4.97) L 01/22/18 03:50 Hgb 10.5 g/dL (11.5-15.4) L 01/22/18 03:50 Hct 31.8 % (35.3-44.9) L 01/22/18 03:50 RDW 17.6 % (11.5-14.5) H 01/22/18 03:50 MPV 9.2 fL (9.4-12.4) L 01/22/18 03:50 ABG pO2 56 mmHg (85-104) L 01/15/18 08:29 ABG HCO3 30 mEq/L (21-27) H 01/15/18 08:29 ABG Total CO2 32 mEq/L (20-26) H 01/15/18 08:29 ABG O2 Saturation 90 % (95-98) L 01/15/18 08:29 ABG Base Excess 6 mEq/L (-2 to 3) H 01/15/18 08:29 Carbon Dioxide 30 mEq/L (23-29) H 01/22/18 03:50 Creatinine 0.49 mg/dL (0.60-1.20) L 01/22/18 03:50 BUN/Creatinine Ratio 37 (6-26) H 01/22/18 03:50 POC Glucose 105 mg/dL (70-99) H 01/21/18 05:29 Magnesium 1.5 mg/dL (1.6-2.6) L 01/22/18 03:50 AST 57 Units/L (13-39) H 01/14/18 18:44 Serum Total Protein 5.7 g/dL (6.4-8.9) L 01/14/18 18:44 Globulin 2.2 g/dL (2.4-3.5) L 01/14/18 18:44 Urine Clarity Cloudy (Clear) A 01/14/18 20:05 Urine Bacteria Moderate per hpf (None-Few) H 01/14/18 20:05 - VTE Documentation of Mechanical Device: Intermittent pneumatic compression device Consult Discharge Plan - Plan Additional Instructions: DISCHARGE INSTRUCTIONS Dr. Ni DISCHARGE DIAGNOSIS/PROCEDURE Open reduction and internal fixation of the left distal radius ACTIVITY: Avoid aggressive activities with the left upper extremity. No pushing, pulling , lifting with the left upper extremity. WOUND CARE: Keep the dressing clean, dry, and intact. Do not take off or get wet or dirty. DIET: Begin with clear liquids, and then increase your diet as you feel comfortable. FOLLOW-UP Follow-up with Dr. Ni at the office 2 weeks from the surgery date for a post operative evaluation. Call the office at [phone] to schedule or confirm your appointment. WHEN TO CALL THE DOCTOR OR WHEN TO SEEK CARE BEFORE YOUR APPOINTMENT 1. Excess swelling or increased numbness not made better by elevating the hand and moving the fingers. 2. Uncontrolled pain. 3. A color change in your hand or fingers. 4. Worsening redness or drainage. 5. Fevers over 100.5 degrees F or 38.1 degrees C. 6. Any symptoms that bring concern to you. Referrals: Danna Ortiz CNP [Primary Care Provider] -
--- NOTE | 2018-01-22 08:23 | Internal Med Progress Note ---
Hospitalist Progress Note - Encounter Date of Encounter: 01/22/18 Time of Encounter: 09:40 - Subjective Interval History: left wrist pain present, currently tolerable. no numbness/tingling of hand/ fingers, finger rom intact. no etoh symptoms. denies n/v, palpitations, anxiety. no longer has tremor in hands - Exam Vitals: Temp Pulse Resp BP Pulse Ox 98.4 F 82 14 119/74 96 01/22/18 06:40 01/22/18 06:40 01/22/18 06:40 01/22/18 06:40 01/22/18 06:40 Exam: General: awake, alert, appears stated age Cardiovascular:regular rate and rhythm, normal S1 & S2, no rubs, murmurs or gallops. cap refill normal Left fingers, warm fingers Lungs:Normal breath sounds, no wheezes, or crackles. Normal respiratory effort on O2 nc Extremities:LUE wrist in cast Neurological: AAOx3, npo hand tremor, sensation intact and equal to light touch in bl hands/fingers Skin:Normal color, no rash, no pallor, no jaundice - Assessment and Plan (1) Acute respiratory failure with hypoxia Current Visit: Yes Status: Acute Assessment and Plan: pt came in with coughing and shortness of breath. Oxygen sat was 86% on room air. CTA chest ruled out PE but showed evidence of emphysema and COPD Improved -cont nebs, steroids and antibiotics -Supplemental oxygen as needed to keep sats above 93%. -attempt to wean O2 NC today, may require home o2 eval prior to dc (2) COPD with acute exacerbation Current Visit: Yes Status: Acute Assessment and Plan: Improved -see above -completion of 7d Levaquin for copd exacerbation 01/21 -will begin to wean steroids 01/22 with completion of wean as outpt -PT rec for home with [facility] (3) Alcohol withdrawal delirium, acute, hyperactive Current Visit: Yes Status: Resolved Assessment and Plan: Pt admits to drinking beer and vodka every day. Last drink was a week ago. Has tremors and shakes consistent with alcohol withdrawal as well she is anxious. - delirium resolved -etoh w/d improving -has not required ativan, as d/w pharmacy, [facility] -completed banana bag x3 -change to oral thiamine, folate, MVI daily -monitor electrolytes in setting of etoh w/d (4) Gastric wall thickening Current Visit: Yes Status: Acute Assessment and Plan: Pt complains of abdominal pain and has esophageal, gasstric and duodenal wall thickening on CT scan. Had endscopy done on 01/15 showing esophagitis and Goldstein's esophagus. On PPI BID. Outpatient follow up with GI for repeat endoscopy (5) DVT prophylaxis Current Visit: Yes Status: Acute Assessment and Plan: Heparin sc held for OR, resume 01/22 (6) Esophagitis Current Visit: Yes Status: Acute Assessment and Plan: EGS showed grade D esophagitis and Barrets esophagus. Started on PPI BID per GI. follow up for repeat endoscopy in 8 weeks. (7) Urinary tract infection Current Visit: Yes Status: Acute Assessment and Plan: Pt had suprapubic pain. -she has been treated with Levaquin by previous provider -as d/ pharm 01/21 rec is to dc levaquin given UA not largely remarkable (8) Wrist fracture, left Current Visit: Yes Status: Acute Assessment and Plan: Patient fell 01/18 attempting to ambulate to the bathroom and had wrist swelling s/p fall. -Xray showed distal left radius fracture. -Orthopedic surgery consulted and recommend volar splint to hand -surgery 01/21 -prn pain control (9) Hypokalemia Current Visit: Yes Status: Acute Assessment and Plan: Resolved with repletion (10) Hypomagnesemia Current Visit: Yes Status: Acute Assessment and Plan: IV repletion today repeat lab in am DVT Prophylaxis: heparin sq - Time Spent with Patient Total time spent is greater than 50% in coordination of care (as documented) at patient's floor/unit and/or counseling patient: 25 - 35 minutes Plan of Care Discussed with: patient Internal Medicine: Result - Labs CBC & Chem 7: 01/22/18 03:50 01/22/18 03:50 Labs: Short CBC 01/22/18 Range/Units 03:50 WBC 6.5 (4.3-11.1) K/mcL Hgb 10.5 L (11.5-15.4) g/dL Hct 31.8 L (35.3-44.9) % Plt Count 288 (140-400) K/mcL Neutrophils # 5.0 (1.6-8.9) K/mcL BMP 01/22/18 03:50 Sodium 136 Potassium 3.8 Chloride 101 Carbon Dioxide 30 H BUN 18 Creatinine 0.49 L Glucose 101 Calcium 8.9 - ABG Interpretation ABG results: ABG ABG pH 7.45 pH Units (7.32-7.45) 01/15/18 08:29 ABG pCO2 43 mmHg (35-45) 01/15/18 08:29 ABG pO2 56 mmHg (85-104) L 01/15/18 08:29 ABG O2 Saturation 90 % (95-98) L 01/15/18 08:29 - Impressions Impressions Fluoroscopy 01/21/18 17:30 IMPRESSION: Intraprocedural fluoroscopic spot images as above. See separate procedure report for more information. D/ / 01/21/2018 20:00:48 Gwen Og MD / lina Interpreting Provider: Gwen Og MD Wrist X-Ray 01/21/18 17:30 IMPRESSION: Intraprocedural fluoroscopic spot images as above. See separate procedure report for more information. D/ / 01/21/2018 20:00:48 Gwen Og MD / lina Interpreting Provider: Gwen Og MD - VTE Documentation of Mechanical Device: Intermittent pneumatic compression device Consult Discharge Plan - Plan Additional Instructions: DISCHARGE INSTRUCTIONS Dr. Ni DISCHARGE DIAGNOSIS/PROCEDURE Open reduction and internal fixation of the left distal radius ACTIVITY: Avoid aggressive activities with the left upper extremity. No pushing, pulling , lifting with the left upper extremity. WOUND CARE: Keep the dressing clean, dry, and intact. Do not take off or get wet or dirty. DIET: Begin with clear liquids, and then increase your diet as you feel comfortable. FOLLOW-UP Follow-up with Dr. Ni at the office 2 weeks from the surgery date for a post operative evaluation. Call the office at [phone] to schedule or confirm your appointment. WHEN TO CALL THE DOCTOR OR WHEN TO SEEK CARE BEFORE YOUR APPOINTMENT 1. Excess swelling or increased numbness not made better by elevating the hand and moving the fingers. 2. Uncontrolled pain. 3. A color change in your hand or fingers. 4. Worsening redness or drainage. 5. Fevers over 100.5 degrees F or 38.1 degrees C. 6. Any symptoms that bring concern to you. Referrals: Danna Ortiz, CAT [Primary Care Provider] - (8) Wrist fracture, left Qualifiers: Encounter type: initial encounter Fracture type: closed Qualified Code(s): S62.102A - Fracture of unspecified carpal bone, left wrist, initial encounter for closed fracture
[2018-01-22] MEDS ORDERED: predniSONE 20 MG TABLET PO SCH (09:00)
[2018-01-22] MEDS: amLODIPine 5 MG TABLET PO SCH (09:14)
[2018-01-22] MEDS: Thiamine (B-1) 100 MG TABLET PO SCH ×2 (09:14→09:16)
[2018-01-22] MEDS: Folic Acid 1 MG TABLET PO SCH (09:15)
[2018-01-22] MEDS: Sucralfate 1 GM TABLET PO SCH ×4 (09:15→21:02)
[2018-01-22] MEDS: predniSONE 10 MG TABLET PO SCH (09:16)
[2018-01-22] MEDS: Multivit/Ca/Min/Fe/FA 1 TAB TABLET PO SCH (09:16)
[2018-01-22] MEDS: Budesonide/Formoterol 160/4.5 1 PUFF INH IH SCH ×2 (09:29→20:05)
[2018-01-22] MEDS: *HR* OxyCODONE/APAP 5/325 TABLET PO PRN ×3 (10:34→20:07)
[2018-01-22] MEDS: *HR* Heparin 5,000 UNIT/ML VIAL SQ SCH ×2 (12:31→21:02)
[2018-01-22] MEDS: traMADol 50 MG TABLET PO PRN ×2 (12:31→21:05)
[2018-01-22 20:28] LABS: Bilirubin,Urine Negative (Negative); Blood,Urine Negative (Negative); Clarity,Urine Turbid (Clear); Color,Urine Yellow (Yellow); Glucose,Urine (UA) Normal (Normal); Ketones,Urine Negative (Negative); Leukocyte Esterase,Urine Negative (Negative); Nitrite,Urine Negative (Negative); PH,Urine 7.5 pH Units (5.0-8.0); Protein,Urine Negative (Neg-Trace); Specific Gravity,Urine 1.021 (1.010-1.025); Urobilinogen,Urine Normal (Normal)
[2018-01-22 20:30] LABS: Bacteria,Urine None Seen per hpf (None-Few); Hyaline Casts,Urine None Seen per lpf (None-Few); RBC,Urine 0-3 per hpf (0-3); Squamous Epithelial Cell,Urine Moderate per lpf (None-Few); WBC,Urine 0-3 per hpf (0-3)
[2018-01-23] MEDS: *HR* OxyCODONE/APAP 5/325 TABLET PO PRN ×2 (01:13→09:30)
[2018-01-23] MEDS: *HR* Heparin 5,000 UNIT/ML VIAL SQ SCH ×2 (05:23→11:57)
[2018-01-23] MEDS: traMADol 50 MG TABLET PO PRN ×2 (05:37→12:02)
[2018-01-23] MEDS: Budesonide/Formoterol 160/4.5 1 PUFF INH IH SCH (07:42)
[2018-01-23 07:50] LABS: Basophils % 0.2 %; Eosinophils % 0.5 %; Hematocrit 33.7 % (35.3-44.9); Hemoglobin 11.1 g/dL (11.5-15.4); Immature Granulocytes % 0.7 % (0-4); Lymphocytes # 1.8 K/mcL (0.6-4.6); Lymphocytes % 30.6 %; Mean Corpuscular HGB Conc 32.9 g/dL (31.6-35.5); Mean Corpuscular Hemoglobin 31.6 pg (28.0-33.3); Mean Platelet Volume 9.4 fL (9.4-12.4); Monocytes # 0.7 K/mcL (0.0-1.3); Monocytes % 11.2 %; Neutrophils # 3.4 K/mcL (1.6-8.9); Platelet Count 371 K/mcL (140-400); Red Blood Count 3.51 M/mcL (3.82-4.97); Red Cell Distribution Width 17.5 % (11.5-14.5); Segmented Neutrophils % 56.8 %
[2018-01-23 08:50] LABS: BUN/Creatinine Ratio 41 (6-26); Blood Urea Nitrogen 17 mg/dL (8-23); Calcium 9.4 mg/dL (8.6-10.3); Carbon Dioxide 30 mEq/L (23-29); Chloride 104 mEq/L (98-107); Glucose 82 mg/dL (70-105); Magnesium 1.5 mg/dL (1.6-2.6); Osmolality,Calculated 291 (280-300); Phosphorous 2.9 mg/dL (2.7-4.5); Potassium 3.6 mEq/L (3.5-5.1); Sodium 140 mEq/L (136-145); eGFR For Non-African Americans > 60 (> 60)
[2018-01-23] MEDS: amLODIPine 5 MG TABLET PO SCH (09:30)
[2018-01-23] MEDS: Folic Acid 1 MG TABLET PO SCH (09:30)
[2018-01-23] MEDS: predniSONE 10 MG TABLET PO SCH (09:31)
[2018-01-23] MEDS: Sucralfate 1 GM TABLET PO SCH ×2 (09:31→11:57)
[2018-01-23] MEDS: Multivit/Ca/Min/Fe/FA 1 TAB TABLET PO SCH (09:31)
[2018-01-23 09:50] VITALS: BP 105/65
--- NOTE | 2018-01-23 09:50 | Physician Discharge Referral ---
Home Health/Hosp Referral Info Transfer to: Home Health Attending Provider: Chandu Provider in Charge Post Discharge: PCP - Diagnosis (1) Acute respiratory failure with hypoxia Priority: Primary Status: Acute (2) COPD with acute exacerbation Priority: Primary Status: Acute (3) Alcohol withdrawal delirium, acute, hyperactive Priority: Secondary Status: Resolved (4) Gastric wall thickening Priority: Secondary Status: Acute (5) DVT prophylaxis Priority: Secondary Status: Acute (6) Esophagitis Priority: Secondary Status: Acute (7) Urinary tract infection Priority: Secondary Status: Resolved (8) Wrist fracture, left Priority: Secondary Status: Acute (9) Hypokalemia Priority: Secondary Status: Chronic (10) Hypomagnesemia Priority: Secondary Status: Resolved - Respiratory Orders None Smoking Cessation: Smoking cessation has been advised. For more information, call the [employer] Quit Line at [phone]-IHQN-NOW. - Diet/Nutrition Diet/Nutrition Orders: Regular Diet/Nutrition: List: recommend nutritional supplement drink TID AC, Ensure Enlive - Activity Activity: List: NON weight bearing left upper extremity - Services Needed Following services are medically necessary services: Nursing, Home Health Aide, Physical Therapy, Occupational Therapy - Transfer Medications Prescriptions: OxyCODONE/APAP 5/325 [Percocet 5/325 MG] 1 each PO Q6HR PRN 4 Days #16 tablet PRN Reason: Severe Pain Folic Acid 1 mg PO DAILY #30 tablet Multivit/Ca/Min/Fe/FA [Thera M Plus] 1 tab PO DAILY #30 tablet Omeprazole [PriLOSEC] 40 mg PO BIDAC #60 capsule. predniSONE [PredniSONE] See Taper PO DAILY #18 tablet Sucralfate [Carafate] 1 gm PO QIDAC #120 tablet Thiamine (B-1) [Vitamin B-1] 100 mg PO DAILY #30 tablet Home Medications: Albuterol Sulfate [Ventolin Hfa] 2 puff IH Q4-6H PRN 01/15/18 [History] Cholecalciferol (Vitamin D3) [Vitamin D3] 10,000 unit PO QWEEK 01/15/18 [History ] Escitalopram [Lexapro] 20 mg PO DAILY 01/15/18 [History] Fluticasone/Vilanterol [Breo Ellipta 100-25 Mcg INH] 2 puff PO BID 01/15/18 [ History] Ipratropium/Albuterol Neb [Duoneb] 3 ml IH Q6HR PRN 01/15/18 [History] Montelukast [Singulair] 10 mg PO HS 01/15/18 [History] Potassium Chloride [K-Tab ER] 10 meq PO DAILY 01/15/18 [History] Simvastatin [Zocor] 10 mg PO HS 01/15/18 [History] amLODIPine [Norvasc] 5 mg PO DAILY 01/15/18 [History] Folic Acid 1 mg PO DAILY #30 tablet 01/23/18 [Rx] Multivit/Ca/Min/Fe/FA [Thera M Plus] 1 tab PO DAILY #30 tablet 01/23/18 [Rx] Omeprazole [PriLOSEC] 40 mg PO BIDAC #60 capsule. 01/23/18 [Rx] OxyCODONE/APAP 5/325 [Percocet 5/325 MG] 1 each PO Q6HR PRN 4 Days #16 tablet [Rx] Sucralfate [Carafate] 1 gm PO QIDAC #120 tablet 01/23/18 [Rx] Thiamine (B-1) [Vitamin B-1] 100 mg PO DAILY #30 tablet 01/23/18 [Rx] predniSONE [PredniSONE] See Taper PO DAILY #18 tablet 01/23/18 [Rx] Allergies/Adverse Reactions: 3 Allergy/AdvReac Type Severity Reaction Status Date / Time Sulfa (Sulfonamide Allergy Difficulty Verified 01/15/18 16:08 Antibiotics) Breathing Certification: Further, I certify that my clinical findings support that this patient is homebound (i.e. absences from home require considerable and taxing effort and are for medical reasons or congregation services or infrequently or short duration when for other reasons) because: COPD exacerbation and left wrist fracture Homebound Reason: Post-surgery restriction and or conditions limit ability to leave home Attestation: My signature below is to certify that this patient is under my care and that I, or nurse practitioner, or a physician's assistant corporation counsel working with me, has a face-to -face encounter with this patient.
--- NOTE | 2018-01-23 10:07 | Discharge Summary ---
- NOTES TO OUTPATIENT PROVIDER Notes to Outpatient Provider: She requires Ortho fu in 2 weeks for repeat XR wrist and stiches removed. She was started on thiamine/folate/MVI for chornic alcohol use. She has esophagitis and dx holland's esophagus. She was started on BID PPI and QID Carafate. She will need to see Dr Palacios in 8 weeks for repeat EGD. She had routinely low magnesium that required IV repletion to improve. Please obtain level in follow up as may require daily repletion Date of Encounter: 01/23/18 Time of Encounter: 09:00 - Discharge Diagnosis (1) Acute respiratory failure with hypoxia Priority: Primary Status: Resolved Assessment and Plan: pt came in with coughing and shortness of breath. Oxygen sat was 86% on room air. CTA chest ruled out PE but showed evidence of emphysema and COPD Improved -treated with nebs, steroids and antibiotics -Supplemental oxygen as needed to keep sats above 93%. Weaned off o2 to room air (2) COPD with acute exacerbation Priority: Primary Status: Resolved Assessment and Plan: resolved -see above -completion of 7d Levaquin for copd exacerbation 01/21 -taper po steroids as outpt -PT rec for home with [facility] (3) Alcohol withdrawal delirium, acute, hyperactive Priority: Secondary Status: Resolved Assessment and Plan: Pt admits to drinking beer and vodka every day. Last drink was a week ago. Has tremors and shakes consistent with alcohol withdrawal as well she is anxious. - delirium resolved -etoh w/d resolved -has not required ativan in recent days -completed banana bag x3 -oral thiamine, folate, MVI daily -monitored electrolytes in setting of etoh w/d (4) Gastric wall thickening Priority: Secondary Status: Acute Assessment and Plan: Pt complained of abdominal pain and has esophageal, gasstric and duodenal wall thickening on CT scan. Had endscopy done on 01/15 showing esophagitis and Holland's esophagus. On PPI BID and Carafate QID. Outpatient follow up with GI Dr Palacios for repeat endoscopy in 8 weeks (5) DVT prophylaxis Priority: Secondary Status: Acute Assessment and Plan: Heparin sc held for OR, resume 01/22 (6) Esophagitis Priority: Secondary Status: Acute Assessment and Plan: EGS showed grade D esophagitis and Barrets esophagus. Started on PPI BID and Carafate QID per GI. follow up for repeat endoscopy in 8 weeks. (7) Urinary tract infection Priority: Secondary Status: Resolved Assessment and Plan: Pt had suprapubic pain. -she has been treated with Levaquin by previous provider -as d/ pharm 01/21 rec is to dc levaquin given UA not largely remarkable -repeat UA 01/22 unremarkable Qualifiers: Urinary tract infection type: acute cystitis Hematuria presence: without hematuria Qualified Code(s): N30.00 - Acute cystitis without hematuria (8) Wrist fracture, left Priority: Secondary Status: Acute Assessment and Plan: Patient fell 01/18 attempting to ambulate to the bathroom and had wrist swelling s/p fall. -Xray showed distal left radius fracture. -Orthopedic surgery consulted and recommend volar splint to hand -surgery 01/[address] Ni -prn pain control with percocet short course RX given on dc -fu with ortho in 2 weeks for repeat XR and stitches removal Qualifiers: Encounter type: initial encounter Fracture type: closed Qualified Code(s) : S62.102A - Fracture of unspecified carpal bone, left wrist, initial encounter for closed fracture (9) Hypokalemia Priority: Secondary Status: Chronic Assessment and Plan: Resolved with repletion cont home low dose daily repletion on dc (10) Hypomagnesemia Priority: Secondary Status: Chronic Assessment and Plan: improved with multiple IV repletions -rec for pcp fu and repeat testing outpt Hospital course: Ms. Us is a 62 year old female Discharge discussed with: patient - Time Spent with Patient Total time spent providing and/or coordinating discharge services: Greater than 30 minutes - Discharge Medications Prescriptions: OxyCODONE/APAP 5/325 [Percocet 5/325 MG] 1 each PO Q6HR PRN 4 Days #16 tablet PRN Reason: Severe Pain Folic Acid 1 mg PO DAILY #30 tablet Multivit/Ca/Min/Fe/FA [Thera M Plus] 1 tab PO DAILY #30 tablet Omeprazole [PriLOSEC] 40 mg PO BIDAC #60 capsule. predniSONE [PredniSONE] See Taper PO DAILY #18 tablet Sucralfate [Carafate] 1 gm PO QIDAC #120 tablet Thiamine (B-1) [Vitamin B-1] 100 mg PO DAILY #30 tablet Home Medications: Albuterol Sulfate [Ventolin Hfa] 2 puff IH Q4-6H PRN 01/15/18 [History] Cholecalciferol (Vitamin D3) [Vitamin D3] 10,000 unit PO QWEEK 01/15/18 [History ] Escitalopram [Lexapro] 20 mg PO DAILY 01/15/18 [History] Fluticasone/Vilanterol [Breo Ellipta 100-25 Mcg INH] 2 puff PO BID 01/15/18 [ History] Ipratropium/Albuterol Neb [Duoneb] 3 ml IH Q6HR PRN 01/15/18 [History] Montelukast [Singulair] 10 mg PO HS 01/15/18 [History] Potassium Chloride [K-Tab ER] 10 meq PO DAILY 01/15/18 [History] Simvastatin [Zocor] 10 mg PO HS 01/15/18 [History] amLODIPine [Norvasc] 5 mg PO DAILY 01/15/18 [History] Folic Acid 1 mg PO DAILY #30 tablet 01/23/18 [Rx] Multivit/Ca/Min/Fe/FA [Thera M Plus] 1 tab PO DAILY #30 tablet 01/23/18 [Rx] Omeprazole [PriLOSEC] 40 mg PO BIDAC #60 capsule. 01/23/18 [Rx] OxyCODONE/APAP 5/325 [Percocet 5/325 MG] 1 each PO Q6HR PRN 4 Days #16 tablet [Rx] Sucralfate [Carafate] 1 gm PO QIDAC #120 tablet 01/23/18 [Rx] Thiamine (B-1) [Vitamin B-1] 100 mg PO DAILY #30 tablet 01/23/18 [Rx] predniSONE [PredniSONE] See Taper PO DAILY #18 tablet 01/23/18 [Rx] Allergies/Adverse Reactions: 3 Allergy/AdvReac Type Severity Reaction Status Date / Time Sulfa (Sulfonamide Allergy Difficulty Verified 01/15/18 16:08 Antibiotics) Breathing Date of admission: 01/17/18 08:33 Primary care physician: Danna Ortiz CNP Consults: 01/17/18 11:03 Consult to Physical Therapy [CONS] Routine Comment: Evaluate, develop and implement POC Reason for Consult: eval for poss ecf, need pre cert Does patient have active BEDREST order?: No Is patient medically & hemodynamically stable?: Yes 01/18/18 13:55 Consult to Orthopedic Surgery [CONS] Routine Consulting Provider: [facility] Reason for Consult: left wrist fracture Call Completed: Yes Discharging clinician: Nasra Hess - Constitutional Vitals: Temp Pulse Resp BP Pulse Ox 97.9 F 76 14 105/65 94 01/23/18 09:49 01/23/18 09:49 01/23/18 09:49 01/23/18 09:49 01/23/18 09:49 General appearance: Present: A&O X 3 Exam: General: awake, alert, appears stated age Cardiovascular:regular rate and rhythm, normal S1 & S2, no rubs, murmurs or gallops. cap refill normal Left fingers, warm fingers Lungs:Normal breath sounds, no wheezes, or crackles. Normal respiratory effort on O2 nc Extremities:LUE wrist in cast Neurological: AAOx3, no hand tremor Skin:Normal color, no rash, no pallor, no jaundice - Patient Status Disposition: Home Health Service Condition: Good - Discharge Instructions Follow Up With: Tyrese Ni MD [Partnered Physician] - 02/06/18 8:50 am Danna Ortiz CNP [Primary Care Provider] - 01/28/18 9:30 am Leandra Palacios MD [Partnered Physician] - (in 8 weeks for repeat EGD) Additional Instructions: DISCHARGE INSTRUCTIONS Dr. Ni DISCHARGE DIAGNOSIS/PROCEDURE Open reduction and internal fixation of the left distal radius ACTIVITY: Avoid aggressive activities with the left upper extremity. No pushing, pulling , lifting with the left upper extremity. WOUND CARE: Keep the dressing clean, dry, and intact. Do not take off or get wet or dirty. DIET: Begin with clear liquids, and then increase your diet as you feel comfortable. FOLLOW-UP Follow-up with Dr. Ni at the office 2 weeks from the surgery date for a post operative evaluation. Call the office at [phone] to schedule or confirm your appointment. WHEN TO CALL THE DOCTOR OR WHEN TO SEEK CARE BEFORE YOUR APPOINTMENT 1. Excess swelling or increased numbness not made better by elevating the hand and moving the fingers. 2. Uncontrolled pain. 3. A color change in your hand or fingers. 4. Worsening redness or drainage. 5. Fevers over 100.5 degrees F or 38.1 degrees C. 6. Any symptoms that bring concern to you. - VTE Documentation of Mechanical Device: Intermittent pneumatic compression device
[2018-01-23] MEDS ORDERED: Magnesium Oxide 400 MG TABLET PO ONE (11:41)
[2018-01-24] MEDS ORDERED: Magnesium Oxide 400 MG TABLET PO ONE (10:13)
== END 2018-01-23 13:57 | disposition home health service (06) | DRG 951 ==
LOC: EMEROOARM 17:49 → 3ANU 17:49 → SUATTDRO 23:33 → 3ANU 01-15 00:28 → SUATTDRO 01-17 08:33
PROVIDERS: ADMIT Family Medicine; ATTEND Internal Medicine
PROC: ENDOEBX (2018-01-15 14:30)

== ENCOUNTER 2018-03-23 04:34 | Observation (INO) ==
[2018-03-23] MEDS ORDERED: Naloxone 0.4 MG/ML INJ IVP PRN (07:02)
[2018-03-23 07:37] LABS: Basophils % 0.7 %; Hematocrit 32.5 % (35.3-44.9); Hemoglobin 10.5 g/dL (11.5-15.4); Immature Granulocytes % 0.5 % (0-4); Lymphocytes # 0.3 K/mcL (0.6-4.6); Lymphocytes % 5.8 %; Mean Corpuscular HGB Conc 32.3 g/dL (31.6-35.5); Mean Corpuscular Hemoglobin 30.3 pg (28.0-33.3); Mean Corpuscular Volume 93.9 fL (83.0-100.0); Mean Platelet Volume 9.2 fL (9.4-12.4); Monocytes # 0.1 K/mcL (0.0-1.3); Monocytes % 1.2 %; Platelet Count 168 K/mcL (140-400); Red Blood Count 3.46 M/mcL (3.82-4.97); Red Cell Distribution Width 16.5 % (11.5-14.5); Segmented Neutrophils % 91.8 %
[2018-03-23] MEDS ORDERED: Ondansetron 4 MG/2 ML VIAL IVP PRN (07:43)
[2018-03-23] MEDS: Ipratropium/Albuterol Neb 3 ML IH SCH ×6 (07:43→20:22)
[2018-03-23] MEDS ORDERED: *HR* LORazepam 2 MG/ML VIAL IVP PRN (07:44)
[2018-03-23 07:45] LABS: INR 0.9; Prothrombin Time 10.5 Seconds (9.4-12.1)
[2018-03-23 07:47] LABS: Activated Partial Thrombo Time 28.2 Seconds (26.0-36.0)
[2018-03-23 08:00] LABS: Alanine Aminotransferase 42 Units/L (7-52); Albumin 4.5 g/dL (3.5-5.7); Albumin/Globulin Ratio 2.3 (1.1-2.2); Alkaline Phosphatase 83 Units/L (34-104); Amylase 20 Units/L (29-103); Aspartate Amino Transferase 71 Units/L (13-39); BUN/Creatinine Ratio 10 (6-26); Bilirubin,Total 0.4 mg/dL (0.3-1.0); Blood Urea Nitrogen 5 mg/dL (8-23); Calcium 9.2 mg/dL (8.6-10.3); Carbon Dioxide 22 mEq/L (23-29); Chloride 102 mEq/L (98-107); Ethanol 126 mg/dL (Less than 10); Glucose 120 mg/dL (70-105); Lipase 15 Units/L (11-82); Osmolality,Calculated 290 (280-300); Potassium 3.4 mEq/L (3.5-5.1); Sodium 141 mEq/L (136-145); Total Protein 6.5 g/dL (6.4-8.9); Troponin I < 0.03 ng/mL (< 0.04); eGFR For Non-African Americans > 60 (> 60)
[2018-03-23] MEDS ORDERED: MethylPREDNISolone 40 MG/ML VIAL IVP SCH (08:00)
--- NOTE | 2018-03-23 08:55 | Internal Med History&Physical ---
Date of Encounter: 03/23/18 Time of Encounter: 07:00 Internal Medicine - H&P: HPI Chief complaint: Abdominal pain Admitted From: Home Plans for Post Hospital Care: Home History of present illness: Ms. Us is a 62 year old female with history of alcohol use disorder presented to the [facility] emergency department planning of abdominal pain. As per patient her abdominal pain started on the day of admission and was associated with 2 episodes of nonbloody bilious vomiting. Her pain is located in the epigastric area, nonradiating, sharp in nature and she cannot recall aggravating or alleviating factors. She has also lost her appetite since her pain started but denies pain having any association with food. She denies hematemesis or melena however she does report that 2 days prior to admission she did have fresh blood mixed with stools. She often experiences abdominal pain similar to the pain that she is exper iencing now especially when she stops drinking alcohol. She recently had an endoscopy performed at [facility] on 01/15/2018 which showed suspicion of Goldstein's esophagus, grade D esophagitis and enlarged gastric folds which were biopsied. She was given PPI and Carafate however she reports that she has missed a few doses. Pathology report of endoscopy performed above showed no dysplasia and no significant inflammation and benign oxyntic-type gastric mucosa suggestive of benign fundic gland polyp. Colonoscopy 09/20/2009 Dr. Olivares: Cecum with sessile adenoma, sigmoid hyperplast ic polyp, proximal ascending with sessile adenoma. While at [facility] emergency department CT abdomen and pelvis was performed it showed marked apparent gastric body wall thickening, nonspecific. Otherwise no acute abdominopelvic pathology. She was transferred to [facility] for further management of above complaint. She is a current every day alcohol drinker, last drink was 24 hours ago, when she stops drinking she develops upper extremity tremors so she again starts drinking alcohol as the tremors go away with alcohol use Past Med Surg Social Fam HX - Past Medical History Medical history: COPD, GERD, hypertension Psychiatric history: anxiety, depression - Past Surgical History Surgical History: no surgical history - Social History Smoking Status: Current every day smoker Packs per day: 0.5 Smokeless Tobacco Status: No Alcohol use: heavy, recent Drug use: marijuana - Family History Mother Adopted: No Living Status: Hx Family Cancer: Yes (multiple) Father Adopted: No Family Member Ethnicity: Non- Living Status: Hx Family Cancer: Yes (Multiple) Internal Medicine - H&P: Meds Albuterol Sulfate [Ventolin Hfa] 2 puff IH Q4-6H PRN 01/15/18 [History] Cholecalciferol (Vitamin D3) [Vitamin D3] 10,000 unit PO QWEEK 01/15/18 [History] Escitalopram [Lexapro] 20 mg PO DAILY 01/15/18 [History] Fluticasone/Vilanterol [Breo Ellipta 100-25 Mcg INH] 2 puff PO BID 01/15/18 [History] Ipratropium/Albuterol Neb [Duoneb] 3 ml IH Q6HR PRN 01/15/18 [History] Montelukast [Singulair] 10 mg PO HS 01/15/18 [History] Potassium Chloride [K-Tab ER] 10 meq PO DAILY 01/15/18 [History] Simvastatin [Zocor] 10 mg PO HS 01/15/18 [History] amLODIPine [Norvasc] 5 mg PO DAILY 01/15/18 [History] Folic Acid 1 mg PO DAILY #30 tablet 01/23/18 [Rx] Multivit/Ca/Min/Fe/FA [Thera M Plus] 1 tab PO DAILY #30 tablet 01/23/18 [Rx] Omeprazole [PriLOSEC] 40 mg PO BIDAC #60 capsule. 01/23/18 [Rx] Sucralfate [Carafate] 1 gm PO QIDAC #120 tablet 01/23/18 [Rx] Thiamine (B-1) [Vitamin B-1] 100 mg PO DAILY #30 tablet 01/23/18 [Rx] Allergy/AdvReac Type Severity Reaction Status Date / Time Sulfa (Sulfonamide Allergy Difficulty Verified 01/15/18 16:08 Antibiotics) Breathing All Systems PM: eview of systems was performed and is negative for pertinent findings except as documented above in the HPI. - Constitutional Vitals: Temp Pulse Resp BP Pulse Ox 99.4 F 98 18 131/79 94 03/23/18 06:31 18 06:31 03/23/18 07:45 03/23/18 06:31 03/23/18 07:45 Exam: General: Patient is alert, oriented, no acute distress, has tremors Head: atraumatic, normocephalic, Eye: normal appearance, PERRL, no scleral icterus, no conjunctival injection ENT: mucous membranes moist, normal external ear exam Neck: normal inspection, trachea midline, full ROM, no carotid bruits Chest: normal inspection, symmetric chest rise Respiratory: Good respiratory effort. decreased Bilateral breath sounds, without wheezing, crackles, or rhonchi. Cardiovascular: tachycardic s1 and s2 No clicks, rubs, gallops, or murmors. Abdomen: Bowel sounds present normoactive x-4 quadrants. Abdomen is soft, nondistended. no Epigastric tenderness. No guarding or rebound. No organomegaly noted musculoskeletal: Spontaneously moving all extremities. no edema, no calf tenderness Skin: warm, dry, intact. Neuro: Alert and oriented x4. Sensation light touch intact. Cranial nerves 2- 12 is intact. Not aphasic, bilateral tremors on outstretched hands Psych: Patient's affect is normal Internal Med - H&P Results - Labs CBC & Chem 7: 03/23/18 07:22 03/23/18 07:22 Labs: Short CBC 03/23/18 Range/Units 07:22 WBC 4.3 (4.3-11.1) K/mcL Hgb 10.5 L (11.5-15.4) g/dL Hct 32.5 L (35.3-44.9) % Plt Count 168 (140-400) K/mcL Neutrophils # 4.0 (1.6-8.9) K/mcL BMP 03/23/18 07:22 Sodium 141 Potassium 3.4 L Chloride 102 Carbon Dioxide 22 L BUN 5 L Creatinine 0.50 L Glucose 120 H Calcium 9.2 Cardiac Enzymes 03/23/18 Range/Units 07:22 Troponin I < 0.03 (< 0.04) ng/mL Liver Function 03/23/18 Range/Units 07:22 Total Bilirubin 0.4 (0.3-1.0) mg/dL AST 71 H (13-39) Units/L ALT 42 (7-52) Units/L Alkaline Phosphatase 83 (34-104) Units/L Albumin 4.5 (3.5-5.7) g/dL - EKG Data -: EKG Interpreted by Myself (sinus tachycardia, QT426, St depressions in byron lateral leads) - Assessment and plan (1) Alcoholic gastritis Current Visit: Yes Status: Acute Assessment and plan: Abdominal pain, nausea and vomiting most likely secondary to alcohol use and alcoholic gastritis Started on IV Protonix continue Carafate Zofran every 6 hours when necessary for nauseawatch QT Gastroenterology was consulted will follow recommendations Nothing by mouth for now. IV hydrationwatch for for overload Amylase, lipase CT A/P at [facility] 03/22 marked apparent gastric body wall thickening, nonspecific. Otherwise no acute abdominopelvic pathology. endoscopy- 01/15/18- 01/15/2018 which showed suspicion of Goldstein's esophagus, grade D esophagitis and enlarged gastric folds which were biopsied. Qualifiers: Chronicity: chronic Gastritis bleeding: without bleeding Qualified Code(s): K29.20 - Alcoholic gastritis without bleeding (2) Alcohol withdrawal delirium, acute, hyperactive Current Visit: No Status: Acute Assessment and plan: Was started on CIWA protocol Thiamine and folic acid IV NS - watch for overload Alcohol level Utox Aspiration, fall, seizure precautions (3) Hematochezia Current Visit: Yes Status: Acute Assessment and plan: Reports an episode of fresh blood per rectum 2 days prior to admissioncurrently denies blood Follow CBC every 6 hours Transfuse less than 7 Type and screen stat FOBT GI was consulted will follow recommendations Colonoscopy 09/20/2009 Dr. Olivares: Cecum with sessile adenoma, sigmoid hyperplastic polyp, proximal ascending with sessile adenoma. (4) Hypokalemia Current Visit: No Status: Chronic Assessment and plan: Replaced Follow BMP in the morning and replace accordingly (5) Hypomagnesemia Current Visit: No Status: Chronic Assessment and plan: Replaced Follow BMP in the morning and replace accordingly (6) COPD (chronic obstructive pulmonary disease) Current Visit: No Status: Acute Assessment and plan: Continue oxygen via nasal cannula keep saturations above 90 Continue home medications Qualifiers: COPD type: chronic bronchitis Chronic bronchitis type: simple Qualified Code(s): J41.0 - Simple chronic bronchitis (7) DVT prophylaxis Current Visit: No Status: Acute Assessment and plan: SCDs until GI bleed has been ruled out - Time Spent With Patient Total time spent is greater than 50% in coordination of care (as documented) at patient's floor/unit and/or counseling patient:
[2018-03-23] MEDS ORDERED: Pantoprazole 80 MG in 0.9 % Sodium Chloride 50 ML IVPB SCH (09:00)
[2018-03-23] MEDS: *HR* LORazepam 2 MG/ML VIAL IVP PRN ×4 (09:49→23:49)
[2018-03-23] MEDS: Thiamine (B-1) 100 MG in D5% in Water 50 ML IVPB SCH (09:50)
[2018-03-23] MEDS: Folic Acid 1 MG TABLET PO SCH (09:50)
[2018-03-23] MEDS: 0.9 % Sodium Chloride 1,000 ML IVC SCH ×2 (09:50→23:42)
[2018-03-23] MEDS: Multivit/Ca/Min/Fe/FA 1 TAB TABLET PO SCH (11:16)
[2018-03-23] MEDS: Sucralfate 1 GM TABLET PO SCH ×3 (11:17→23:42)
[2018-03-23] MEDS: Nicotine 14 MG PATCH.TD24 TD SCH (12:43)
[2018-03-23 13:04] LABS: Hematocrit 29.7 % (35.3-44.9); Hemoglobin 9.8 g/dL (11.5-15.4); Mean Corpuscular Hemoglobin 30.7 pg (28.0-33.3); Mean Corpuscular Volume 93.1 fL (83.0-100.0); Mean Platelet Volume 9.2 fL (9.4-12.4); Platelet Count 158 K/mcL (140-400); Red Blood Count 3.19 M/mcL (3.82-4.97); Red Cell Distribution Width 16.3 % (11.5-14.5)
[2018-03-23] MEDS: [Breo Ellipta 100-25 Mcg Inh] PO SCH (19:59)
[2018-03-23 21:15] LABS: Hematocrit 31.2 % (35.3-44.9); Hemoglobin 10.3 g/dL (11.5-15.4); Mean Corpuscular Hemoglobin 30.2 pg (28.0-33.3); Mean Corpuscular Volume 91.5 fL (83.0-100.0); Mean Platelet Volume 9.6 fL (9.4-12.4); Platelet Count 171 K/mcL (140-400); Red Blood Count 3.41 M/mcL (3.82-4.97)
[2018-03-24] MEDS: Ipratropium/Albuterol Neb 3 ML IH SCH ×4 (00:27→11:33)
[2018-03-24 00:47] LABS: Amphetamine Screen,Urine Negative ng/mL (Cutoff=1000); Barbiturate Screen,Urine Negative ng/mL (Cutoff=200); Benzodiazepines Screen,Urine Negative ng/mL (Cutoff=200); Cannabinoid Screen,Urine Positive ng/mL (Cutoff = 50); Cocaine Screen,Urine Negative ng/mL (Cutoff= 300); Opiate Screen,Urine Negative ng/mL (Cutoff=300); Phencyclidine Screen,Urine Negative ng/mL (Cutoff=25)
[2018-03-24 05:12] LABS: BUN/Creatinine Ratio 12 (6-26); Blood Urea Nitrogen 5 mg/dL (8-23); Calcium 9.2 mg/dL (8.6-10.3); Carbon Dioxide 30 mEq/L (23-29); Chloride 93 mEq/L (98-107); Glucose 83 mg/dL (70-105); Magnesium 1.1 mg/dL (1.6-2.6); Osmolality,Calculated 282 (280-300); Potassium 2.8 mEq/L (3.5-5.1); Sodium 138 mEq/L (136-145); eGFR For Non-African Americans > 60 (> 60)
[2018-03-24] MEDS ORDERED: Pantoprazole 40 MG VIAL IVP SCH (07:53)
[2018-03-24] MEDS: Multivit/Ca/Min/Fe/FA 1 TAB TABLET PO SCH (09:53)
[2018-03-24] MEDS: Nicotine 14 MG PATCH.TD24 TD SCH (09:53)
[2018-03-24 09:54] LABS: Hematocrit 36.9 % (35.3-44.9); Mean Corpuscular HGB Conc 32.8 g/dL (31.6-35.5); Mean Corpuscular Hemoglobin 30.2 pg (28.0-33.3); Mean Platelet Volume 9.6 fL (9.4-12.4); Platelet Count 184 K/mcL (140-400); Red Blood Count 4.01 M/mcL (3.82-4.97); Red Cell Distribution Width 15.9 % (11.5-14.5)
[2018-03-24] MEDS: Folic Acid 1 MG TABLET PO SCH (09:54)
[2018-03-24] MEDS: Sucralfate 1 GM TABLET PO SCH ×4 (09:54→21:17)
[2018-03-24] MEDS: Cholecalciferol (D-3) 1,000 UNIT TABLET PO SCH (09:54)
[2018-03-24] MEDS: [Breo Ellipta 100-25 Mcg Inh] PO SCH ×2 (10:07→21:18)
[2018-03-24 10:08] LABS: Hemoglobin 12.1 g/dL (11.5-15.4)
--- NOTE | 2018-03-24 10:15 | Gastroenterology Consult Note ---
Date of Encounter: 03/24/18 Time of Encounter: 10:13 - Assessment and plan (1) Melena Current Visit: Yes Status: Acute Assessment and plan: Patient reports noticing black stools for several days. States she has never had anything like this before. Does have a history of gastric inflammation on EGD performed in December. Hemoglobin stable. Recommend EGD, keep patient nothing by mouth for now. (2) Abdominal pain Current Visit: No Status: Acute Assessment and plan: Possibly due to alcoholic gastritis related to patient's chronic alcohol use. Peptic ulcer disease, esophagitis, duodenitis also concern. Plan for EGD today as above. Qualifiers: Abdominal location: epigastric Qualified Code(s): R10.13 - Epigastric pain (3) Chronic alcohol use Current Visit: Yes Status: Acute Assessment and plan: Patient reports that she is a current drinker and states that she "drinks enough to keep the shakes away." Currently mildly tremulous. Patient reports last drink was 4-5 days ago. Recommended complete alcohol cessation patient states that she drinks due to anxiety and would need a "nerve pill". Recommended close outpatient follow-up to discuss treatment options for her anxiety to avoid continuing alcohol use. Continue CIWA protocol for treatment of alcohol withdrawal. - Time Spent With Patient Total time spent is greater than 50% in coordination of care (as documented) at patient's floor/unit and/or counseling patient: GI History of Present Illness - Data of Consult Patient: known to practice within the last 3 years Consult date: 03/24/18 Requesting Physician: Davidson Reyes MD - Consult Narrative Reason for consult: Abdominal pain, melena, alcohol use History of present illness: Ms. Us is a 62 year old female with history of hypertension, COPD, chronic alcohol use presents with abdominal pain. Patient reports that she had several days of abdominal pain prior to admission and had notice her stools changing to a black color. She reports 2-3 weeks ago she noticed a few drops of red blood in her stool as well. At this time her symptoms have completely resolved and she states she is hungry. She states this pain feels similar to when she was hospitalized back in December with gastritis. She denies nausea, vomiting, diarrhea. She reports mild constipation. She denies fever, chills, chest pain, shortness of breath. Patient reports that she chronically drinks alcohol. She is unable to quantify her drinking and states that she drinks enough to "keep the shakes away." She reports her last drink was 4-5 days ago. She states she drinks to treat her anxiety and says that she will quit drinking if she can get a "nerve pill." Colonoscopy: 09/20/2009 EGD: 01/15/18 Past Med Surg Social Fam HX - Past Medical History Medical history: COPD, GERD, hypertension Psychiatric history: anxiety, depression - Past Surgical History Surgical History: no surgical history - Social History Smoking Status: Current every day smoker Packs per day: 0.5 Smokeless Tobacco Status: No Alcohol use: heavy, recent Drug use: marijuana - Family History Mother Adopted: No Living Status: Hx Family Cancer: Yes (multiple) Father Adopted: No Family Member Ethnicity: Non- Living Status: Hx Family Cancer: Yes (Multiple) All systems PM: reviewed and no additional remarkable complaints except as stated - Constitutional Vitals: Temp Pulse Resp BP Pulse Ox 98.5 F 108 17 124/88 92 03/24/18 08:01 03/24/18 08:01 03/24/18 08:01 03/24/18 08:01 03/24/18 08:01 General appearance: Present: A&O X 0, disheveled, A&O X 3, no acute distress Exam: Mild diffuse tremor - Head Head exam: Present: atraumatic, normal inspection, normocephalic - Eye Eye exam: Present: EOMI, PERRL - Respiratory Respiratory exam: Present: CTAB. Absent: rales, stridor, tachypnea - Cardiovascular Cardiovascular exam: Present: RRR, tachycardia. Absent: gallop, rubs, systolic murmur - GI/Abdominal GI/Abdominal exam: Present: normal bowel sounds, soft, no peritoneal signs. Absent: distended, hepatomegaly, tenderness - Extremities Exam Extremities exam: Present: warm. Absent: pedal edema, tenderness - Psychiatric Psychiatric exam: Present: anxious - Skin Skin exam: Present: dry, intact, warm Results - Labs CBC & Chem 7: 03/24/18 09:36 03/24/18 04:31 Labs: Last Result Calcium 9.2 mg/dL (8.6-10.3) 03/24/18 04:31 Troponin I < 0.03 ng/mL (< 0.04) 03/23/18 07:22 Urine Opiates Screen Negative ng/mL ([id number]) 03/24/18 00:10 Entire Visit Hgb 12.1 g/dL (11.5-15.4) D 03/24/18 09:36 Hct 36.9 % (35.3-44.9) 03/24/18 09:36 PT 10.5 Seconds (9.4-12.1) 03/23/18 07:22 Total Bilirubin 0.4 mg/dL (0.3-1.0) 03/23/18 07:22 AST 71 Units/L (13-39) H 03/23/18 07:22 ALT 42 Units/L (7-52) 03/23/18 07:22 Amylase 20 Units/L (29-103) L 03/23/18 07:22 Lipase 15 Units/L (11-82) 03/23/18 07:22 - ABG ABG results: PT/INR, D-dimer PT 10.5 Seconds (9.4-12.1) 03/23/18 07:22 Consult Discharge Plan - Plan Referrals: NONE,PCP [Primary Care Provider] -
[2018-03-24] MEDS ORDERED: *HR* LORazepam 2 MG/ML VIAL IVP ONE (10:45)
[2018-03-24] MEDS: Thiamine (B-1) 100 MG in D5% in Water 50 ML IVPB SCH (11:00)
[2018-03-24] MEDS ORDERED: *HR* Propofol 200 MG/20 ML VIAL IVP ONE (13:24)
--- NOTE | 2018-03-24 13:25 | Anesthesia Evaluation PreOp ---
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: CVA (20 years ago, denies rsidual deficit) Other Medical History: GERD, Other (anxiety/depression) Anesthesia History: No Prior Anesthetic Complications, Past Anesthesia Alcohol Use: heavy, recent Drug use: marijuana Medications and Allergies Albuterol Sulfate [Ventolin Hfa] 2 puff IH Q4-6H PRN 01/15/18 [History] Cholecalciferol (Vitamin D3) [Vitamin D3] 10,000 unit PO MO 01/15/18 [History] Escitalopram [Lexapro] 20 mg PO DAILY 01/15/18 [History] Fluticasone/Vilanterol [Breo Ellipta 100-25 Mcg INH] 2 puff PO BID 01/15/18 [History] Ipratropium/Albuterol Neb [Duoneb] 3 ml IH Q6HR PRN 01/15/18 [History] Montelukast [Singulair] 10 mg PO HS 01/15/18 [History] Potassium Chloride [K-Tab ER] 10 meq PO DAILY 01/15/18 [History] Simvastatin [Zocor] 10 mg PO HS 01/15/18 [History] amLODIPine [Norvasc] 5 mg PO DAILY 01/15/18 [History] Folic Acid 1 mg PO DAILY #30 tablet 01/23/18 [Rx] Multivit/Ca/Min/Fe/FA [Thera M Plus] 1 tab PO DAILY #30 tablet 01/23/18 [Rx] Sucralfate [Carafate] 1 gm PO QIDAC #120 tablet 01/23/18 [Rx] Thiamine (B-1) [Vitamin B-1] 100 mg PO DAILY #30 tablet 01/23/18 [Rx] Omeprazole [PriLOSEC] 40 mg PO DAILY 03/23/18 [History] Allergy/AdvReac Type Severity Reaction Status Date / Time Sulfa (Sulfonamide Allergy Difficulty Verified 03/23/18 15:34 Antibiotics) Breathing - Meds/Allergy Pre-op Review Medications Reviewed: Yes Allergies Reviewed: Yes Beta Blockers on Current Med List: No Anesthesia Results - Labs 03/24/18 09:36 03/24/18 04:31 Anesthesia Exam Vital Signs/O2 Sat/Glucose, Most Recent Temp Pulse Resp BP Pulse Ox 98.4 F 103 16 123/83 95 03/24/18 13:20 03/24/18 13:20 03/24/18 13:20 03/24/18 13:20 03/24/18 13:20 Blood Glucose* 125 Height: 5'1''/1.55m Weight: 106 lbs/48.4 kg NPO (# of Hours): 8 Pain Scale: 0 Pain Scale Used: Numeric (1 - 10) - HEENT Pupil (Motor): EOMI Mallampati: II Teeth: Edentulous Oral Opening: Greater than 3 - STORAGE GARAGE MANAGER LOC: Oriented STORAGE GARAGE MANAGER Motor: Normal RUE, Normal LUE, Normal RLE, Normal LLE, Normal Face STORAGE GARAGE MANAGER Sensory: Normal: RUE, LUE, RLE, LLE, Face - Cardiac Rhythm: Regular Murmur: None - Pulmonary Breath Sounds: bilateral Clear (decreased BS) Respiratory Effort: Symmetrical Anesthesia Assess/Plan ASA Score: 3 Level of consciousness: Cooperative, Oriented, Tranquil Anesthetic Plan: MAC Monitoring Plan: Standard Monitors
[2018-03-24] MEDS ORDERED: Ipratropium/Albuterol Neb 3 ML IH PRN (14:11)
--- NOTE | 2018-03-24 14:31 | Internal Med Progress Note ---
Hospitalist Progress Note - Encounter Date of Encounter: 03/24/18 Time of Encounter: 14:28 - Subjective Interval History: Patient seen and evaluated at bedside. having resting and intentional tremors. reports drinking alcohol everyday. last time she had a drink was about 3 days ago. reports seeing dark stool for about a week before presenting to the ED. denies visual or auditory hallucinations. - Exam Vitals: Temp Pulse Resp BP Pulse Ox 98.4 F 103 16 123/83 95 03/24/18 13:20 03/24/18 13:20 03/24/18 13:20 03/24/18 13:20 03/24/18 13:20 Exam: Vitals: Reviewed General: Cachectic, Alert and oriented x4. In mild distress due to tremors. Skin: Normal color, no rash, no lesions. HEENT: EOM, pupils equal, round and reactive. Cardiovascular: RRR, Normal S1 & S2, no rubs, murmurs or gallops. Lungs: Clear to auscultation bilaterally, no wheezes or crackles. Abdomen: Soft, non-tender, no rigidity. NABS in all 4 quadrants. Extremities: No edema or tenderness, no joint swelling or clubbing. Neurological: Normal cognition. Resting and intentional tremors. Rest of the physical exam is non contributory - Assessment and Plan (1) Alcohol withdrawal Current Visit: No Status: Acute Assessment and Plan: Patient with intentional and resting tremors. CIWA score 8 Plan telemetry monitoring CIWA protocol on lorazepam as per the protocol thiamine 100mg/PO daily D5NS 0.9%@75msl/hr carvedilol 6.125mg/PO BID (2) Chronic alcohol use Current Visit: Yes Status: Acute Assessment and Plan: plan of care as above (3) Esophageal ulcer without bleeding Current Visit: Yes Status: Acute Assessment and Plan: s/p EGD. possible esophageal varices Plan continue pantoprazole 40m/IV daily Ondansetron 4mg/IV Q4HR PRN for nausea and vomiting Sucralfate 1 g by mouth 3 times a day. (4) Alcoholic gastritis Current Visit: Yes Status: Acute Assessment and Plan: Plan as above. (5) COPD (chronic obstructive pulmonary disease) Current Visit: No Status: Chronic Assessment and Plan: Not on acute exacerbation. Continue DuoNebs Q4Rt PRN singular 10mg/PO daily (6) Hypokalemia Current Visit: No Status: Chronic Assessment and Plan: Possible due to GI lost in the setting of hypokalemia electrolyte being replace will repeat BMP (7) Hypomagnesemia Current Visit: No Status: Chronic Assessment and Plan: possible secondary to alcohol abuse electrolyte being replaced with IV and PO Magnessium. will repeat mag level post replacement. DVT Prophylaxis: No chemical DVT prophylaxis due to GI bleed. Mechanical DVT prophylaxis with intermittent pneumatic compression. - Summary of Assessment and Plan Summary of Assessment and Plan: Patient to remain in the hospital due to alcohol withdrawal. - Time Spent with Patient Total time spent is greater than 50% in coordination of care (as documented) at patient's floor/unit and/or counseling patient: Greater than 35 minutes (40) Plan of Care Discussed with: patient (and the nurse.) Internal Medicine: Result - Labs CBC & Chem 7: 03/24/18 09:36 03/24/18 04:31 Labs: Short CBC 03/23/18 03/24/18 Range/Units 20:47 09:36 WBC 3.4 L 4.6 (4.3-11.1) K/mcL Hgb 10.3 L 12.1 D (11.5-15.4) g/dL Hct 31.2 L 36.9 (35.3-44.9) % Plt Count 171 184 (140-400) K/mcL BMP 03/24/18 04:31 Sodium 138 Potassium 2.8 L Chloride 93 L Carbon Dioxide 30 H BUN 5 L Creatinine 0.42 L Glucose 83 Calcium 9.2 - ABG Interpretation ABG results: PT/INR, D-dimer PT 10.5 Seconds (9.4-12.1) 03/23/18 07:22 Consult Discharge Plan - Plan Referrals: NONE,PCP [Primary Care Provider] - (1) Alcohol withdrawal Qualifiers: Complication of substance-induced condition: with unspecified complication Qualified Code(s): F10.239 - Alcohol dependence with withdrawal, unspecified (4) Alcoholic gastritis Qualifiers: Chronicity: chronic Gastritis bleeding: without bleeding Qualified Code(s): K29.20 - Alcoholic gastritis without bleeding (5) COPD (chronic obstructive pulmonary disease) Qualifiers: COPD type: chronic bronchitis Chronic bronchitis type: simple Qualified Code(s): J41.0 - Simple chronic bronchitis
[2018-03-24] MEDS: D5% in 0.45% NACL 1,000 ML IVC SCH (15:32)
[2018-03-24 15:48] LABS: BUN/Creatinine Ratio 16 (6-26); Blood Urea Nitrogen 7 mg/dL (8-23); Calcium 8.9 mg/dL (8.6-10.3); Carbon Dioxide 27 mEq/L (23-29); Chloride 96 mEq/L (98-107); Glucose 92 mg/dL (70-105); Osmolality,Calculated 284 (280-300); Potassium 3.1 mEq/L (3.5-5.1); Sodium 138 mEq/L (136-145); eGFR For Non-African Americans > 60 (> 60)
[2018-03-24] MEDS: *HR* LORazepam 2 MG/ML VIAL IVP SCH (21:18)
[2018-03-25] MEDS: D5% in 0.45% NACL 1,000 ML IVC SCH ×2 (01:57→12:04)
[2018-03-25] MEDS ORDERED: Melatonin 3 MG TABLET PO PRN (02:31)
[2018-03-25 04:51] LABS: Basophils % 0.4 %; Eosinophils # 0.1 K/mcL (0.0-0.6); Eosinophils % 1.8 %; Hematocrit 35.7 % (35.3-44.9); Hemoglobin 11.7 g/dL (11.5-15.4); Immature Granulocytes % 0.4 % (0-4); Lymphocytes # 1.3 K/mcL (0.6-4.6); Mean Corpuscular HGB Conc 32.8 g/dL (31.6-35.5); Mean Corpuscular Hemoglobin 30.6 pg (28.0-33.3); Mean Corpuscular Volume 93.5 fL (83.0-100.0); Monocytes # 0.3 K/mcL (0.0-1.3); Monocytes % 7.4 %; Neutrophils # 2.7 K/mcL (1.6-8.9); Platelet Count 172 K/mcL (140-400); Red Blood Count 3.82 M/mcL (3.82-4.97); Red Cell Distribution Width 16.1 % (11.5-14.5)
[2018-03-25 05:11] LABS: BUN/Creatinine Ratio 18 (6-26); Blood Urea Nitrogen 7 mg/dL (8-23); Calcium 9.2 mg/dL (8.6-10.3); Carbon Dioxide 27 mEq/L (23-29); Chloride 99 mEq/L (98-107); Glucose 127 mg/dL (70-105); Magnesium 1.4 mg/dL (1.6-2.6); Osmolality,Calculated 284 (280-300); Phosphorous 2.1 mg/dL (2.7-4.5); Potassium 2.9 mEq/L (3.5-5.1); Sodium 137 mEq/L (136-145); eGFR For Non-African Americans > 60 (> 60)
[2018-03-25] MEDS ORDERED: Pantoprazole 40 MG VIAL IVP SCH (09:00)
[2018-03-25] MEDS: Multivit/Ca/Min/Fe/FA 1 TAB TABLET PO SCH (09:34)
[2018-03-25] MEDS: Folic Acid 1 MG TABLET PO SCH (09:35)
[2018-03-25] MEDS: Magnesium Oxide 400 MG TABLET PO SCH (09:35)
[2018-03-25] MEDS: Sucralfate 1 GM TABLET PO SCH ×4 (09:35→21:01)
[2018-03-25] MEDS: Cholecalciferol (D-3) 1,000 UNIT TABLET PO SCH (09:35)
[2018-03-25] MEDS: Nicotine 14 MG PATCH.TD24 TD SCH (09:36)
[2018-03-25] MEDS: Thiamine (B-1) 100 MG in D5% in Water 50 ML IVPB SCH (09:57)
[2018-03-25] MEDS: [Breo Ellipta 100-25 Mcg Inh] PO SCH (10:17)
[2018-03-25] MEDS: *HR* LORazepam 2 MG/ML VIAL IVP PRN ×2 (10:31→17:42)
--- NOTE | 2018-03-25 17:29 | Internal Med Progress Note ---
Hospitalist Progress Note - Encounter Date of Encounter: 03/25/18 Time of Encounter: 11:00 - Subjective Interval History: Patient still and alcohol withdrawal with a CIWA score this morning of 15 - Exam Vitals: Temp Pulse Resp BP Pulse Ox 98.6 F 95 18 117/78 98 03/25/18 16:17 03/25/18 16:17 03/25/18 16:17 03/25/18 16:17 03/25/18 16:17 Exam: Gen.: Nonacute distress, alert and oriented 3 ENT: Mucosal membranes moist Respiratory: Lungs are clear to auscultation bilaterally without any wheezing rhonchi or rales Cardiovascular: Normal S1 and S2 regular rate rhythm no murmurs rubs or gallops Abdomen: Soft, nontender and nondistended with positive bowel sounds Extremities: No lower extremity edema Skin: Normal color - Assessment and Plan (1) Alcohol withdrawal Current Visit: No Status: Acute Assessment and Plan: CIWA score 15 CIWA protocol on lorazepam as per the protocol thiamine 100mg/PO daily carvedilol 6.125mg/PO BID (2) Hypokalemia Current Visit: No Status: Chronic Assessment and Plan: Resolved; continue monitor (3) COPD (chronic obstructive pulmonary disease) Current Visit: No Status: Chronic Assessment and Plan: Not on acute exacerbation. Continue DuoNebs Q4Rt PRN singular 10mg/PO daily (4) Hypomagnesemia Current Visit: No Status: Chronic Assessment and Plan: possible secondary to alcohol abuse electrolyte being replaced with IV and PO Magnessium. (5) Alcoholic gastritis Current Visit: Yes Status: Acute Assessment and Plan: Plan as above. (6) Chronic alcohol use Current Visit: Yes Status: Acute Assessment and Plan: plan of care as above (7) Esophageal ulcer without bleeding Current Visit: Yes Status: Acute Assessment and Plan: s/p EGD. possible esophageal varices continue pantoprazole 40m/IV daily Ondansetron 4mg/IV Q4HR PRN for nausea and vomiting Sucralfate 1 g by mouth 3 times a day. - Time Spent with Patient Total time spent is greater than 50% in coordination of care (as documented) at patient's floor/unit and/or counseling patient: Internal Medicine: Result - Labs CBC & Chem 7: 03/25/18 04:03 03/25/18 15:43 Labs: Short CBC 03/25/18 Range/Units 04:03 WBC 4.5 (4.3-11.1) K/mcL Hgb 11.7 (11.5-15.4) g/dL Hct 35.7 (35.3-44.9) % Plt Count 172 (140-400) K/mcL Neutrophils # 2.7 (1.6-8.9) K/mcL BMP 03/25/18 03/25/18 04:03 15:43 Sodium 137 Potassium 2.9 L 3.5 Chloride 99 Carbon Dioxide 27 BUN 7 L Creatinine 0.38 L Glucose 127 H Calcium 9.2 - ABG Interpretation ABG results: PT/INR, D-dimer PT 10.5 Seconds (9.4-12.1) 03/23/18 07:22 Consult Discharge Plan - Plan Referrals: NONE,PCP [Primary Care Provider] - (1) Alcohol withdrawal Qualifiers: Complication of substance-induced condition: with unspecified complication Qualified Code(s): F10.239 - Alcohol dependence with withdrawal, unspecified (3) COPD (chronic obstructive pulmonary disease) Qualifiers: COPD type: chronic bronchitis Chronic bronchitis type: simple Qualified Code(s): J41.0 - Simple chronic bronchitis (5) Alcoholic gastritis Qualifiers: Chronicity: chronic Gastritis bleeding: without bleeding Qualified Code(s): K29.20 - Alcoholic gastritis without bleeding
[2018-03-25] MEDS: Budesonide/Formoterol 160/4.5 1 PUFF INH IH SCH (20:44)
[2018-03-25] MEDS: *HR* LORazepam 2 MG/ML VIAL IVP SCH (21:01)
[2018-03-26] MEDS: 0.9 % Sodium Chloride 1,000 ML IVC SCH (00:10)
[2018-03-26 06:51] VITALS: BP 115/82
[2018-03-26] MEDS ORDERED: Thiamine (B-1) 100 MG TABLET PO SCH (09:00)
[2018-03-26] MEDS: Budesonide/Formoterol 160/4.5 1 PUFF INH IH SCH (10:31)
[2018-03-26] MEDS: Sucralfate 1 GM TABLET PO SCH ×2 (11:33→11:34)
[2018-03-26] MEDS: Multivit/Ca/Min/Fe/FA 1 TAB TABLET PO SCH (11:34)
[2018-03-26] MEDS: Folic Acid 1 MG TABLET PO SCH (11:35)
[2018-03-26] MEDS: Magnesium Oxide 400 MG TABLET PO SCH (11:35)
[2018-03-26] MEDS: Cholecalciferol (D-3) 1,000 UNIT TABLET PO SCH (11:35)
[2018-03-26] MEDS: Nicotine 14 MG PATCH.TD24 TD SCH (11:36)
--- NOTE | 2018-03-26 12:45 | Discharge Summary ---
- NOTES TO OUTPATIENT PROVIDER Notes to Outpatient Provider: Follow-up with primary care provider Orders not resulted at time of discharge: Pending orders 03/23/18 07:22 Culture,Blood [BC] Stat 03/23/18 08:46 Occult Blood,Stool [BF] Routine Date of Encounter: 03/26/18 Time of Encounter: 11:00 - Discharge Diagnosis (1) Alcohol withdrawal Priority: Primary Status: Acute Qualifiers: Complication of substance-induced condition: with unspecified complication Qualified Code(s): F10.239 - Alcohol dependence with withdrawal, unspecified (2) Hypokalemia Priority: Primary Status: Chronic (3) COPD (chronic obstructive pulmonary disease) Priority: Primary Status: Chronic Qualifiers: COPD type: chronic bronchitis Chronic bronchitis type: simple Qualified Code(s): J41.0 - Simple chronic bronchitis (4) Hypomagnesemia Priority: Secondary Status: Chronic (5) 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 Patients discomfort was located in the epigastric region which was not radiating which she characterized as sharp without any aggravating or alleviating factors. Patient also reports of associated loss of appetite. She denied any hematemesis or melena however she does report that 2 days prior to admission she did have fresh blood mixed with stools. At [facility], CT abdomen and pelvis was performed it showed marked apparent gastric body wall thickening, nonspecific. Otherwise no acute abdominopelvic pathology. She was transferred to [facility] for further management of above complaint. During patients hospital stay GI was consulted with recommendations for EGD which showed nonbleeding esophageal ulcer with gastritis. Recommendations for alcohol cessation. She was also placed on CIWA protocol for alcohol withdrawal. In addition patient also requires supplemental oxygenation due to hypoxic respiratory failure COPD. She will follow-up with GI and primary care provider. - Time Spent with Patient Total time spent providing and/or coordinating discharge services: Less than 30 minutes - Discharge Medications Home Medications: Albuterol Sulfate [Ventolin Hfa] 2 puff IH Q4-6H PRN 01/15/18 [History] Cholecalciferol (Vitamin D3) [Vitamin D3] 10,000 unit PO MO 01/15/18 [History] Escitalopram [Lexapro] 20 mg PO DAILY 01/15/18 [History] Fluticasone/Vilanterol [Breo Ellipta 100-25 Mcg INH] 2 puff PO BID 01/15/18 [History] Ipratropium/Albuterol Neb [Duoneb] 3 ml IH Q6HR PRN 01/15/18 [History] Montelukast [Singulair] 10 mg PO HS 01/15/18 [History] Potassium Chloride [K-Tab ER] 10 meq PO DAILY 01/15/18 [History] Simvastatin [Zocor] 10 mg PO HS 01/15/18 [History] amLODIPine [Norvasc] 5 mg PO DAILY 01/15/18 [History] Folic Acid 1 mg PO DAILY #30 tablet 01/23/18 [Rx] Multivit/Ca/Min/Fe/FA [Thera M Plus] 1 tab PO DAILY #30 tablet 01/23/18 [Rx] Sucralfate [Carafate] 1 gm PO QIDAC #120 tablet 01/23/18 [Rx] Thiamine (B-1) [Vitamin B-1] 100 mg PO DAILY #30 tablet 01/23/18 [Rx] Omeprazole [PriLOSEC] 40 mg PO DAILY 03/23/18 [History] Allergies/Adverse Reactions: Allergy/AdvReac Type Severity Reaction Status Date / Time Sulfa (Sulfonamide Allergy Difficulty Verified 03/23/18 15:34 Antibiotics) Breathing Date of admission: 03/23/18 06:07 Primary care physician: PCP NONE Consults: 03/23/18 07:07 Consult to Case Management [CONS] Routine Comment: Consult to Nutrition [CONS] Routine Comment: Consulting Provider: NUTRITION Reason for Dietary Consult: PO Supplementation Consult to Physical Therapy [CONS] Routine Comment: Evaluate, develop and implement POC Reason for Consult: dispostion Does patient have active BEDREST order?: No Is patient medically & hemodynamically stable?: Yes Patient assessed for mobility or mobilized this visit?: Yes 03/23/18 07:44 Consult to [employer] [CONS] Routine Reason for SW Consult: alcihol use disorder 03/23/18 07:47 Consult to Gastroenterology [CONS] Routine Consulting Provider: Gastroenterology Kamini Reason for Consult: alcoholic gastritis, blood in stools, no recent EGD Call Completed: No 03/23/18 09:12 Consult to Nutrition [CONS] Routine Comment: Consulting Provider: NUTRITION Reason for Dietary Consult: PO Supplementation - Constitutional Vitals: Temp Pulse Resp BP Pulse Ox 97.4 F L 101 18 115/82 88 03/26/18 06:39 03/26/18 06:39 03/26/18 10:31 03/26/18 06:39 03/26/18 12:21 Exam: Gen.: Nonacute distress, alert and oriented 3 - Patient Status Disposition: Home Health Service Condition: Good - Discharge Instructions Instructions: Acute Respiratory Distress Syndrome (DC), Urinary Tract Infection in Women (DC), Chronic Obstructive Pulmonary Disease (DC), Alcohol Intoxication (DC), Alcohol Intoxication (GEN), Abuse of Alcohol (DC), Acute Nausea and Vomiting (DC) Follow Up With: NONE,PCP [Primary Care Provider] -
--- NOTE | 2018-03-26 12:46 | Physician Discharge Referral ---
Home Health/Hosp Referral Info Transfer to: Home Health - Diagnosis (1) Alcohol withdrawal Status: Acute (2) Hypokalemia Status: Chronic (3) COPD (chronic obstructive pulmonary disease) Status: Chronic (4) Hypomagnesemia Status: Chronic (5) Alcoholic gastritis Status: Acute (6) Chronic alcohol use Status: Acute (7) Esophageal ulcer without bleeding Status: Acute - Respiratory Orders Smoking Cessation: Smoking cessation has been advised. For more information, call the [place] Tobacco Quit Line at 5-129-FIJD-NOW. - Services Needed Following services are medically necessary services: Nursing, Home Health Aide, Physical Therapy, Occupational Therapy - Transfer Medications Home Medications: Albuterol Sulfate [Ventolin Hfa] 2 puff IH Q4-6H PRN 01/15/18 [History] Cholecalciferol (Vitamin D3) [Vitamin D3] 10,000 unit PO MO 01/15/18 [History] Escitalopram [Lexapro] 20 mg PO DAILY 01/15/18 [History] Fluticasone/Vilanterol [Breo Ellipta 100-25 Mcg INH] 2 puff PO BID 01/15/18 [History] Ipratropium/Albuterol Neb [Duoneb] 3 ml IH Q6HR PRN 01/15/18 [History] Montelukast [Singulair] 10 mg PO HS 01/15/18 [History] Potassium Chloride [K-Tab ER] 10 meq PO DAILY 01/15/18 [History] Simvastatin [Zocor] 10 mg PO HS 01/15/18 [History] amLODIPine [Norvasc] 5 mg PO DAILY 01/15/18 [History] Folic Acid 1 mg PO DAILY #30 tablet 01/23/18 [Rx] Multivit/Ca/Min/Fe/FA [Thera M Plus] 1 tab PO DAILY #30 tablet 01/23/18 [Rx] Sucralfate [Carafate] 1 gm PO QIDAC #120 tablet 01/23/18 [Rx] Thiamine (B-1) [Vitamin B-1] 100 mg PO DAILY #30 tablet 01/23/18 [Rx] Omeprazole [PriLOSEC] 40 mg PO DAILY 03/23/18 [History] Allergies/Adverse Reactions: Allergy/AdvReac Type Severity Reaction Status Date / Time Sulfa (Sulfonamide Allergy Difficulty Verified 03/23/18 15:34 Antibiotics) Breathing Certification: Further, I certify that my clinical findings support that this patient is homebound (i.e. absences from home require considerable and taxing effort and are for medical reasons or faith services or infrequently or short duration when for other reasons) because: Homebound Reason: Patient requires assistance of a person or device to safely leave home Attestation: My signature below is to certify that this patient is under my care and that I, or nurse practitioner, or a physician's assistant grocery store manager working with me, has a [id number] encounter with this patient.
== END 2018-03-26 13:56 | disposition home health service (06) ==
LOC: 2NENU → SUATTDRO 06:07 → 2ANU 03-26 13:43
PROVIDERS: ADMIT Family Medicine; ATTEND Hospitalist